=== PATIENT | female | born 1940 | race Caucasian/White ===

== ENCOUNTER 2018-02-18 10:17 | Inpatient (IN) | payer BC, OTHER ==
[2018-02-18] MEDS ORDERED: HYDROmorphone INJ* 2 MG/ML CARPUJECT SYRINGE IV SLOW PU ONE (10:39)
[2018-02-18] MEDS ORDERED: Ondansetron INJ* 2 MG/ML VIAL IV ONE (10:39)
[2018-02-18] MEDS ORDERED: Ketorolac INJ* 30 MG/ML 1 ML VIAL IV PUSH ONE (11:37)
[2018-02-18] MEDS ORDERED: NS 0.9% 1000 ML* 1,000 ML IV ONE (11:37)
--- NOTE | 2018-02-18 11:52 | RAD ---
INDICATION: Fall. Right shoulder injury COMPARISON: None TECHNIQUE: AP and lateral views were obtained. FINDINGS: There is a displaced and mildly comminuted fracture of the surgical neck and head of the humerus. The humeral shaft is displaced approximately two third bone widths laterally. There is mild overriding. The humeral head remains in the fossa. IMPRESSION: PROXIMAL HUMERAL FRACTURE DESCRIBED.
--- NOTE | 2018-02-18 11:53 | RAD ---
Indication: RIGHT knee pain post fall. Comparison: November 23, 2015 Technique: AP and crosstable lateral views RIGHT knee REPORT AND IMPRESSION: RIGHT knee prosthesis in place with normal alignment. No fracture or stigmata of prosthesis loosening. Small joint effusion. Mild anterior soft tissue swelling.
--- NOTE | 2018-02-18 11:55 | RAD ---
INDICATION: Traumatic proximal right humeral fracture COMPARISON: Right humerus same date TECHNIQUE: AP and lateral views were obtained. FINDINGS: There is a fracture of the surgical neck of the humerus with involvement of the humeral head with mild comminution. There is overriding. No other fractures are evident. 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 IMPRESSION: FRACTURE OF THE HUMERAL HEAD AND NECK DESCRIBED.
[2018-02-18 12:11] LABS: ABS Basophils 0 10^3/ul (0-0.2); ABS Eosinophils 0.1 10^3/ul (0-0.6); ABS Lymphocytes 0.6 10^3/ul (1.0-4.8); ABS Neutrophils 13.1 10^3/ul (1.5-7.7); ABS Nucleated RBC 0 10^3/ul; Eosinophil % 0.6 % (0-6); Hematocrit 30 % (35-47); Lymphocyte % 4.1 % (25-47); Mean Corpuscular HGB Conc 34 g/dl (31-36); Mean Corpuscular Hemoglobin 29 pg (27-31); Mean Corpuscular Volume 86 fL (80-97); Mean Platelet Volume 7.2 um3 (7.4-10.4); Nucleated Red Blood Cells % 0; Platelet Count 366 10^3/ul (150-450); Red Blood Count 3.48 10^6/ul (4.0-5.4); Red Cell Distribution Width 15 % (10.5-15); White Blood Count 14.8 10^3/ul (3.5-10.8)
[2018-02-18] MEDS ORDERED: oxyCODONE TAB* 5 MG TAB PO PRN (12:12)
[2018-02-18 12:25] LABS: INR 1.02 (0.77-1.02)
[2018-02-18 12:38] LABS: EGFR Non-African American 58.3 (>60)
[2018-02-18] MEDS: HYDROmorphone INJ* 2 MG/ML CARPUJECT SYRINGE IV SLOW PU PRN ×2 (12:54→17:14)
--- NOTE | 2018-02-18 13:21 | RAD ---
Indication: RIGHT shoulder pain post fall onto shoulder this morning. Comparison: Radiographs of the same date. Technique: Noncontrast CT RIGHT shoulder. Multiplanar reformation. Report: Comminuted fracture extending from the surgical to the anatomic neck of the humerus with approximate 1 bone width anterior displacement of the proximal metaphysis relative to the head as well as severe apex anterior and lateral angulation and impaction. The fracture extends to involve the greater and lesser tuberosities. Associated hemarthrosis. The humeral head remains located at the glenoid. Tiny ossific fragment at the posterior margin of the glenoid is likely dystrophic calcification related to labral degeneration. No fracture of the scapula or clavicle evident. Normal acromioclavicular joint alignment. Negative for RIGHT pneumothorax. IMPRESSION: Comminuted impacted angulated fracture of the surgical through anatomic neck of the RIGHT humerus with involvement of the lesser and greater tuberosities as described.
--- NOTE | 2018-02-18 13:30 | ED ---
Ramses Berger Jennifer, scribed for Prakash Cheema MD on 02/18/18 at 1029 . Upper Extremity Pain - HPI Summary HPI Summary: The patient is a 77 year old female who presents with right shoulder pain after falling this morning. The patient reports that she was a step-down from her bed because its so high. She stepped off and kept going and fell onto the carpeted bathroom floor. She fell directly onto her right shoulder and is now unable to move it. The patient additionally complains of her knee bleeding and dry mouth. She denies head injury, LOC, dizziness, weakness, difficulty breathing, abdominal pain. - History of Current Complaint Stated Complaint: RT SHOULDER PAIN Time Seen by Provider: 02/18/18 10:19 Hx Obtained From: Patient Hx Last Menstrual Period: menopause Mechanism Of Injury: Fall From Height Of: - Bed Onset/Duration: Still Present Timing: Constant Severity Initially: Severe Severity Currently: Severe Pain Location: Shoulder - Right Aggravating Factor(s): Movement Alleviating Factor(s): Nothing Associated Signs & Symptoms: Positive: Other - right shoulder pain, bleeding knee, dry mouth. NEGATIVE: head injury, LOC, dizziness, weakness, difficulty breathing, abdominal pain - Allergies/Home Medications Allergies/Adverse Reactions: Allergies Allergy/AdvReac Type Severity Reaction Status Date / Time Horse/Equine Containing Allergy Swelling Verified 02/18/18 12:00 Products Home Medications: Home Medications Acetaminophen [Acetaminophen Extra Strength] 500 mg PO TID PRN 02/18/18 [ History Confirmed 02/18/18] DULoxetine DR CAP* [Cymbalta CAP*] 60 mg PO DAILY 02/18/18 [History Confirmed ] Diltiazem CD CAP* [Cardizem CD CAP*] 120 mg PO DAILY 02/18/18 [History Confirmed 02/18/18] Famotidine TAB* [Pepcid 20 MG TAB*] 20 mg PO DAILY 02/18/18 [History Confirmed 02/18/18] Metoprolol Tartrate TAB* [Lopressor TAB*] 100 mg PO DAILY 02/18/18 [History Confirmed 02/18/18] Rivaroxaban TAB(*) [Xarelto 10 mg (*)] 10 mg PO DAILY 02/18/18 [History Confirmed 02/18/18] Rosuvastatin (NF) [Crestor (NF)] 5 mg PO DAILY 02/18/18 [History Confirmed 02/18] Senna TAB* [Senokot TAB*] 1 tab PO DAILY 02/18/18 [History Confirmed 02/18/18] Zolpidem CR (NF) [Ambien CR (NF)] 12.5 mg PO BEDTIME 02/18/18 [History Confirmed 02/18/18] amLODIPine TAB* [Norvasc 5 mg TAB*] 5 mg PO DAILY 02/18/18 [History Confirmed ] oxyCODONE TAB* [Roxycodone TAB 5 mg*] 5 mg PO Q3H PRN 02/18/18 [History Confirmed 02/18/18] PMH/Surg Hx/FS Hx/Imm Hx Endocrine/Hematology History: Reports: Hx Anemia Denies: Hx Diabetes Cardiovascular History: Reports: Hx Hypercholesterolemia, Hx Hypertension - on meds for, 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, Other Cardiovascular Problems/Disorders GI History: Reports: Hx Gastroesophageal Reflux Disease - on meds for, Other GI Disorders - pt states undiagnosed "colitis" History: Reports: Other Problems/Disorders - Overactive bladder Musculoskeletal History: Reports: Hx Arthritis - bilateral hands and knees Comment Only: Hx Rheumatoid Arthritis - OA Sensory History: Reports: Hx Contacts or Glasses - reading only Opthamlomology History: Reports: Hx Contacts or Glasses - reading only Psychiatric History: Reports: Hx Anxiety - on meds for - Cancer History Cancer Type, 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 Hurley office- 2014. hysterectomy- 1977. Hx Anesthesia Reactions: No - Family History Known Family History: Positive: Cardiac Disease, Hypertension - Social History Alcohol Use: Occasionally Substance Use Type: Reports: None Smoking Status (MU): Never Smoked Tobacco Review of Systems Negative: Shortness Of Breath Negative: Abdominal Pain Positive: Other - right shoulder pain Positive: Other - bloody right knee Neurological: Negative - head injury, LOC, dizziness, weakness All Other Systems Reviewed And Are Negative: Yes Physical Exam - Summary Physical Exam Summary: Appearance: Well appearing, no pain distress Skin: warm, dry, reflects adequate perfusion, suture wound is intact in right knee Head/face: normal Eyes: pupils 2mm nonreactive ENT: dry mucous membranes Neck: supple, non-tender Respiratory: CTA, breath sounds present Cardiovascular: RRR, aortic stenosis murmur, pulses symmetrical Abdomen: non-tender, soft Bowel Sounds: present Musculoskeletal: no pain on flexion or log roll normal, suture wound is intact in right knee, mid surgical scar has a little bit of oozing of blood, strength/ ROM intact Neuro: normal, sensory motor intact, A&Ox3 Triage Information Reviewed: Yes Vital Signs On Initial Exam: Initial Vitals Pulse BP Pulse Ox 67 179/62 94 02/18/18 10:23 02/18/18 10:23 02/18/18 10:23 Vital Signs Reviewed: Yes Procedures - Procedure Summary Procedure Summary: Tiny dehiscence of R knee surgical wound cleaned with chloroprep and 3 steri- strips placed. Diagnostics - Vital Signs Vital Signs Temp Pulse Resp BP Pulse Ox 02/18/18 11:52 71 92 02/18/18 11:51 70 152/60 89 02/18/18 10:51 16 02/18/18 10:42 69 163/69 92 02/18/18 10:31 98.0 F 68 16 179/62 94 02/18/18 10:24 67 93 02/18/18 10:23 67 179/62 94 - Laboratory Lab Results: Lab Results 02/18/18 Range/Units 11:54 Sodium 130 L (139-145) mmol/L Potassium 4.4 (3.5-5.0) mmol/L Chloride 99 L (101-111) mmol/L Carbon Dioxide 27 (22-32) mmol/L Anion Gap 4 (2-11) mmol/L BUN 19 (6-24) mg/dL Creatinine 0.93 (0.51-0.95) mg/dL Est GFR ( Amer) 75.0 (>60) Est GFR (Non-Af Amer) 58.3 (>60) BUN/Creatinine Ratio 20.4 H (8-20) Glucose 120 H (70-100) mg/dL Calcium 8.6 (8.6-10.3) mg/dL Total Bilirubin 0.60 (0.2-1.0) mg/dL AST 16 (13-39) U/L ALT 10 (7-52) U/L Alkaline Phosphatase 67 (34-104) U/L Total Protein 5.9 L (6.4-8.9) g/dL Albumin 3.4 (3.2-5.2) g/dL Globulin 2.5 (2-4) g/dL Albumin/Globulin Ratio 1.4 (1-3) Result Diagrams: 02/18/18 12:02 02/18/18 11:54 Lab Statement: Any lab studies that have been ordered have been reviewed, and results considered in the medical decision making process. - Radiology Knee XR Xray Interpretation: No Acute Changes - RIGHT knee prosthesis in place with normal alignment. No fracture or stigmata of prosthesis loosening. Small joint effusion. Mild anterior soft tissue swelling. Dr. Cheema has reviewed this report. Radiology Interpretation Completed By: Radiologist Humerus XR Xray Interpretation: Positive (See Comments) - PROXIMAL HUMERAL FRACTURE DESCRIBED. Dr. Cheema has reviewed this report. Radiology Interpretation Completed By: Radiologist Shoulder XR Xray Interpretation: Positive (See Comments) - FRACTURE OF THE HUMERAL HEAD AND NECK DESCRIBED. Dr. Cheema has reviewed this report. Radiology Interpretation Completed By: Radiologist Re-Evaluation - Re-Evaluation First Eval Re-Evaluation Time: 11:37 Change: Improved Comment: I put the patient in a sling. Course/Dx - Course Course Of Treatment: Pt with fall without head injury or impact with pain/ deformity R prox shoulder. Xray c/w prox humerus fx. Ortho evaluated in the ER. Hospitalist eval and will admit for pain control. Pt otherwise stable. Placed in sling. Operative plan per orthopedics. - Diagnoses Differential Diagnosis/HQI/PQRI: Positive: Fracture (Closed), Hematoma Provider Diagnoses: Proximal humerus fracture - Physician Notifications Discussed Care of Patient With: Luann Manzano Time Discussed With Above Provider: 11:38 Instructed by Provider To: Other - I discussed the patient with Dr. Manzano, orthopedic surgeon, and Dr. So, hospitalist. Discharge - Sign-Out/Discharge Documenting (check all that apply): Discharge/Admit/Transfer - Discharge Plan Condition: Good Disposition: ADMITTED TO [facility] - Billing Disposition and Condition Condition: GOOD Disposition: [facility] [place] The documentation as recorded by the Ramses bernstein Jennifer accurately reflects the service I personally performed and the decisions made by Anette zendejas Kirk, MD.
[2018-02-18] MEDS ORDERED: Morphine VIAL* 4 MG/ML VIAL (1 ml vial) IV PRN (13:41)
[2018-02-18] MEDS: oxyCODONE TAB* 5 MG TAB PO PRN ×2 (14:05→18:51)
[2018-02-18] MEDS: Heparin VIAL(*) 5000 UNITS/ML VIAL (FIVE THOUSAND) SUBCUT SCH ×2 (14:06→20:42)
--- NOTE | 2018-02-18 17:32 | ECHO ---
Patient: [facility] Rec#: [id number] : 1940 Date: 02/18/2018 Age: 77y Height: 149.86 cm / 59.0 in Weight: 49.9 kg / 110.0 lbs Sex: F BSA: 1.43 Room#: 332 Admit Date#: 02/18/2018 Type: Inpatient Referring: Valeria Bob NP Reading: Sergey Bravo DO Sole Cementer: Nancy MonteroRDCS,RDMS Transthoracic Echocardiogram Indication: HOCM BP: 125/55 HR: 70 Rhythm: NSR Findings History: HOCM, HTN, HLD Left Ventricle: The left ventricular chamber size is normal. Moderate concentric left ventricular hypertrophy is observed. Basal septal hypertrophy and systolic anterior motion of the mitral valve are observed creating an outflow tract gradient. Patient has an end systolic dynamic LVOT gradient of 7 m/s which is a peak gradient of 196 mmHg (very severely elevated) Global left ventricular wall motion and contractility are within normal limits. There is normal left ventricular systolic function. The estimated ejection fraction is greater than 65%. Abnormal left ventricular diastolic function is observed. Left Atrium: The left atrium is severely dilated. Right Ventricle: The right ventricular chamber size and systolic function are within normal limits. The right ventricle wall thickness is mildly increased. Right Atrium: The right atrial cavity size is normal. Aortic Valve: The aortic valve is trileaflet. The aortic valve leaflets are mildly thickened. There is aortic annular calcification. There is moderate aortic regurgitation. Mitral Valve: Severe mitral annular calcification present., posterior predominant The mitral valve leaflets are mildly thickened. Mitral valve leaflet mobility is mildly restricted. There is mild to moderate mitral regurgitation. There is moderate mitral stenosis. wiht a mean gradient of 9.2 mmHg while in sinus rhythm at 70 bpm. Some of elevated gradient likely related to mitral regurgitation Tricuspid Valve: The tricuspid valve leaflets are normal. There is mild tricuspid regurgitation. There is evidence of moderate pulmonary hypertension. Pulmonic Valve: The pulmonic valve appears normal. There is mild pulmonic regurgitation. There is no pulmonic stenosis. Pericardium: There is no significant pericardial effusion. Aorta: There is mild dilatation of the ascending aorta. There is no dilatation of the aortic arch. The aortic root is normal in size. Pulmonary Artery: The main pulmonary artery appears normal. Venous: The inferior vena cava is not visualized. Conclusions The left ventricular chamber size is normal. Moderate concentric left ventricular hypertrophy is observed. Basal septal hypertrophy and systolic anterior motion of the mitral valve are observed creating an outflow tract gradient. [Patient has an end systolic dynamic LVOT gradient of 7 m/s which is a peak gradient of 196 mmHg (very severely elevated at rest (without valsalva)] There is normal left ventricular systolic function. The estimated ejection fraction is 65-70% The left atrium is severely dilated. The right ventricular chamber size and systolic function are within normal limits. There is moderate aortic regurgitation. There is mild to moderate mitral regurgitation. There is moderate non-rheumatic mitral stenosis. There is evidence of moderate pulmonary hypertension. Compared to prior study from 07/2017, no clinically significant changes noted. Measurements Name Value Normal Range RVIDd (AP) 2D 2.6 cm (0.9 - 2.6) RVDdMajor (2D) 2.4 cm (2.2 - 4.4) RAd ISD 4CH 4.9 cm (3.4 - 4.9) RA (A4C)W 3.4 cm (2.9 - 4.6) IVSd (2D) 2 cm (0.6 - 1) LVPWd (2D) 2 cm (0.6 - 1) LVIDd (2D) 3.9 cm (3.6 - 5.4) LVIDs (2D) 2.6 cm - LV FS (2D) 34 % (25 - 45) Aortic Annulus 2 cm (1.4 - 2.6) Ao root diameter (2D) 2.5 cm (2.1 - 3.5) Ascending Ao 3.9 cm (2.1 - 3.4) Aortic arch 3.3 cm (1.8 - 3.4) LA dimension (AP) 2D 4.7 cm (2.3 - 3.8) LAd ISD 4CH 6.8 cm (2.9 - 5.3) LA ISD 4CH W 5.5 cm (2.5 - 4.5) Name Value Normal Range LA ESV SP 4CH (A/L) 134.73 ml - LA ESV SP 2CH (A/L) 102.34 ml - LA ESV BP (A/L) 127.22 ml - LA ESV BP (A/L) index 89 ml/m2 - LA ESV SP 4CH (MOD) 125.49 ml - LA ESV SP 2CH (MOD) 98.82 ml - Name Value Normal Range MV E-wave Vmax 1.4 m/sec - MV deceleration time 191 msec - MV A-wave Vmax 1.8 m/sec - MV E:A ratio 0.8 ratio - LV septal e' Vmax 0.04 m/sec - LV lateral e' Vmax 0.05 m/sec - LV E:e' septal ratio 35 ratio - LV E:e' lateral ratio 28 ratio - Name Value Normal Range AV Vmax 1.9 m/sec - AV VTI 24 cm - AV peak gradient 14 mmHg - AV mean gradient 4.9 mmHg - LVOT diameter 2 cm - AR PHT 442.72 msec - AR peak gradient 52.15 mmHg - ANDRES Vmax 0.7 m/sec - Name Value Normal Range MV Vmax 2.1 m/sec - MV VTI 59 cm - MV peak gradient 18 mmHg - MV mean gradient 9.2 mmHg - MV PHT 74 msec - MVA (PHT) 3 cm2 - Name Value Normal Range TR Vmax 3.3 m/sec - TR peak gradient 44 mmHg - RAP 8 mmHg - RVSP 52 mmHg - Name Value Normal Range PV Vmax 1.1 m/sec - PV peak gradient 5 mmHg -
--- NOTE | 2018-02-18 18:28 | CONSULT ---
Subjective Date of Service: 02/18/18 Interval History: Admission Date: 02/18/18 Consult date 02/18/2018 Provider: Hospitalist service PMD: Dr. Johnson Firepot Operator And Tender: Dr. Lozano CHIEF COMPLAINT: Mechanical fall and right arm fracture. Reason for consult: Pre-operative cardiac risk stratification HISTORY OF PRESENT ILLNESS: Mariam Blount is a 77-year-old woman with a past medical history of HOCM with very severe resting LVOT gradient along with mixed valve disease as below, paroxysmal Afib on amiodarone, hypertension, hyperlipidemia. She is with her and aide. She had an uncomplicated knee replacement in [place] 2 weeks ago. She tells me she left A because sodium was low, 02 levels were, concern over pulmonary hypertension and they wanted to keep her one more night inpatient and she declined. She was recovering relatively well until she had a mechanical fall at home and right proximal humeral fracture. She denies any lightheadedness, dizziness, palpitations, chest discomfort dyspnea, significant recent edema or syncope. Her and understand that she has a very serious heart condition. She does not want to leave this hospital and wants to have surgery here. I discussed with Dr. Manzano. The surgery being planned requires general anesthesia. The chance of significant blood loss is low. PAST MEDICAL HISTORY: 1. HOCM. 2. Hypertension. 3. Hyperlipidemia. 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 Almeida as outpatient. 5. LBBB Pshx: knee replacement ALLERGIES: horse products. FAMILY HISTORY: The patient's mother had a brain tumor. Her father had a history of CVA. SOCIAL HISTORY: No report of smoking. She drinks wine occasionally. She is . Her surrogate decision maker is her . Medications Active Medications: Acetaminophen (Tylenol Tab*) 650 mg PO Q4H PRN PRN Reason: FEVER/PAIN Amiodarone HCl (Cordarone Tab*) 100 mg PO DAILY [facility] Diltiazem HCl (Cardizem Cd Cap*) 120 mg PO DAILY [facility] Docusate Sodium (Colace Cap*) 200 mg PO DAILY [facility] Duloxetine HCl (Cymbalta Cap*) 60 mg PO DAILY [facility] Estradiol (Climara Patch 0.05 Mg/Day*) patch TRANSDERM .TWICE WEEKLY [facility] Famotidine (Pepcid Tab*) 20 mg PO DAILY [facility] Heparin Sodium (Porcine) (Heparin Vial(*)) 5,000 units SUBCUT Q8HR [facility] Last Admin: 02/18/18 14:06 Dose: 5,000 units Hydromorphone HCl (Dilaudid Inj*) 1 mg IV SLOW PU Q2H PRN PRN Reason: PAIN Last Admin: 02/18/18 17:14 Dose: 1 mg Sodium Chloride (Ns 0.9% 1000 Ml*) 1,000 mls @ 75 mls/hr IV PER RATE [facility] Metoprolol Succinate (Toprol Xl Tab*) 100 mg PO DAILY [facility] Morphine Sulfate (Morphine Vial*) 4 mg IV Q2H PRN PRN Reason: PAIN Oxycodone HCl (Roxycodone Tab*) 5 mg PO Q3H PRN PRN Reason: PAIN Oxycodone HCl (Roxycodone Tab*) 10 mg PO Q4H PRN PRN Reason: PAIN Last Admin: 02/18/18 14:05 Dose: 10 mg Senna (Senokot Tab*) 1 tab PO DAILY [facility] Valsartan (Diovan Tab*) 160 mg PO 0900 [facility] Zolpidem Tartrate (Ambien Tab*) 10 mg PO BEDTIME [facility] PRN Reason: Protocol Home Medications: Valsartan TAB* [Diovan TAB*] 160 mg PO DAILY 04/25/13 [History Confirmed ] Docusate CAP* [Colace Cap*] 200 mg PO DAILY 06/02/16 [History Confirmed 02/18/18 ] Estradiol PATCH 0.05MG/DAY* [Climara PATCH 0.05 MG/DAY*] 0.05 mg TOPICAL .TWICE WEEKLY 06/02/16 [History Confirmed 02/18/18] Amiodarone TAB* [Cordarone Tab*] 100 mg PO DAILY 08/25/16 [History Confirmed 01/03] Acetaminophen [Acetaminophen Extra Strength] 500 mg PO TID PRN 02/18/18 [ History Confirmed 02/18/18] DULoxetine DR CAP* [Cymbalta CAP*] 60 mg PO DAILY 02/18/18 [History Confirmed ] Diltiazem CD CAP* [Cardizem CD CAP*] 120 mg PO DAILY 02/18/18 [History Confirmed 02/18/18] Famotidine TAB* [Pepcid 20 MG TAB*] 20 mg PO DAILY 02/18/18 [History Confirmed 02/18/18] Metoprolol Tartrate TAB* [Lopressor TAB*] 100 mg PO DAILY 02/18/18 [History Confirmed 02/18/18] Rivaroxaban TAB(*) [Xarelto 10 mg (*)] 10 mg PO DAILY 02/18/18 [History Confirmed 02/18/18]. for DVT prophylaxis has not been taking. Rosuvastatin (NF) [Crestor (NF)] 5 mg PO DAILY 02/18/18 [History Confirmed 02/18] Senna TAB* [Senokot TAB*] 1 tab PO DAILY 02/18/18 [History Confirmed 02/18/18] Zolpidem CR (NF) [Ambien CR (NF)] 12.5 mg PO BEDTIME 02/18/18 [History Confirmed 02/18/18] amLODIPine TAB* [Norvasc 5 mg TAB*] 5 mg PO DAILY 02/18/18 [History Confirmed ] oxyCODONE TAB* [Roxycodone TAB 5 mg*] 5 mg PO Q3H PRN 02/18/18 [History Confirmed 02/18/18] Review of Systems - Measurements Intake and Output: Intake and Output Last 24 Hours 02/16/18 02/17/18 02/18/18 02/19/18 06:59 06:59 06:59 06:59 Intake Total 1000 Balance 1000 Weight 140 lb Intake: IV Fluids 1000 - Review of Systems Constitutional Symptoms: Negative: Weight Gain, Weight Loss, Weakness, Fatigue Dermatology: Negative: Rash, Skin Lesions HEENT: Negative: Change in Hearing, Vertigo Eyes: Negative: Change in Vision, Double Vision Thyroid: Negative: Cold Intolerance, Heat Intolerance, Weight Loss, Weight Gain Pulmonary: Negative: Cough, Sputum, Hemoptysis, Wheezing, Respiratory Distress, Shortness of Breath Cardiology: Negative: Chest Pain, Shortness of Breath, Palpitations, Swelling of Ankles, Peripheral Vascular Dis, Edema, Syncope, Paroxysmal Nocturnal Dyspnea, Orthopnea Gastroenterology: Negative: Abdominal Pain, Nausea, Vomiting, Anorexia, Indigestion, Difficulty Swallowing Genital - Urinary: Negative: Dysuria, Hematuria Musculoskeletal: Positive: Joint Pain Negative: Joint Stiffness, Arthritis Endocrinology: Negative: Polydipsia, Polyuria Hematologic/Lymphatic: Positive: Anemia Negative: Hx Leukemia Neurology: Negative: Headaches, Migraines, Change in Vision, Diplopia, Dizziness, Change in Balancing, Change in Coordination, Change in Memory Psychiatry: Negative: Depression, Anxiety, Unusual Anxiety, Suicidal Ideation Allergic/Immunologic: Negative: Hx HIV, Immunocompromise Review of Systems Statement: All other review of systems negative, unless stated above. Objective Vital Signs: Temp Pulse Resp BP Pulse Ox 97.3 F 72 18 141/46 95 02/18/18 13:45 02/18/18 13:45 02/18/18 17:14 02/18/18 13:45 02/18/18 13:45 Oxygen Devices in Use Now: None Appearance: nad, pleasant Ears/Nose/Mouth/Throat: Clear Oropharnyx Neck: NL Appearance and Movements; NL JVP, Trachea Midline Respiratory: Symmetrical Chest Expansion and Respiratory Effort, Clear to Auscultation Cardiovascular: RRR, - - harsh 2-3/6 systolic murmur lusb Abdominal: NL Sounds; No Tenderness; No Distention Extremities: No Clubbing, Cyanosis Skin: No Rash or Ulcers Neurological: Alert and Oriented x 3 Laboratory Results: 02/18/18 12:02 02/18/18 11:54 INR (Anticoag Therapy) 1.02 (0.77-1.02) 02/18/18 12:02 APTT 28.8 seconds (26.0-36.3) 02/18/18 12:02 Total Bilirubin 0.60 mg/dL (0.2-1.0) 02/18/18 11:54 AST 16 U/L (13-39) 02/18/18 11:54 ALT 10 U/L (7-52) 02/18/18 11:54 Alkaline Phosphatase 67 U/L (34-104) 02/18/18 11:54 Total Protein 5.9 g/dL (6.4-8.9) L 02/18/18 11:54 Albumin 3.4 g/dL (3.2-5.2) 02/18/18 11:54 Globulin 2.5 g/dL (2-4) 02/18/18 11:54 Albumin/Globulin Ratio 1.4 (1-3) 02/18/18 11:54 Diagnostic Imaging: Echo 02/18/2018 The left ventricular chamber size is normal. Moderate concentric left ventricular hypertrophy is observed. Basal septal hypertrophy and systolic anterior motion of the mitral valve are observed creating an outflow tract gradient. [Patient has an end systolic dynamic LVOT gradient of 7 m/s which is a peak gradient of 196 mmHg (very severely elevated at rest (without valsalva)] There is normal left ventricular systolic function. The estimated ejection fraction is 65-70% The left atrium is severely dilated. The right ventricular chamber size and systolic function are within normal limits. There is moderate aortic regurgitation. There is mild to moderate mitral regurgitation. There is moderate non-rheumatic mitral stenosis. There is evidence of moderate pulmonary hypertension. Compared to prior study from 07/2017, no clinically significant changes noted. cxr 02/18/2018: no acute findings EKG Data: 02/18/2018: NSR, LBBB Assessment/Plan Mrs. Blount is at high risk for cardiovascular complications for anesthesia and surgery. She understands this very well and this was discussed with her and . She does not want to be transferred to another hospital. She needs surgery for a broken arm. I do not appreciate any treatment in the short term that could lower this risk. My recommendations would be: - Keep pre-load elevated with IV fluids as needed and this should be first treatment for low blood pressure - Patient needs metoprolol (I changed to succinate 100 mg daily) and diltiazem tomorrow and this should be uninterrupted. - Hold afterload reducers valsartan and amlodipine (ordered) - Severe hypotension should be treated with phenylephrine/neosynephrine. PLEASE AVOID INOTROPES. We could also consider an echo guided esmolol infusion to monitor and reduce the outflow tract gradient if absolutely necessary. - Patient would be at high risk for hemodynamic collapse and flash pulmonary edema with the development of atrial fibrillation. If she were to develop atrial fibrillation she would need very close monitoring for development of complications with consideration of early external electrical cardioversion if any were to arise. - Would have a low threshold for ICU monitoring post-operatively Discussed with Dr. Manzano (Ortho), Dr. Mckeon (Anesthesia) and Dr. So Thank you for allowing me to participate in the cardiovascular care of this patient. Please do not hesitate to contact me with questions or concerns.
[2018-02-18 18:58] LABS: Urine Appearance Clear; Urine Blood 1+ (Negative); Urine Color Yellow; Urine Ketones Negative (Negative); Urine Protein Negative (Negative); Urine Specific Gravity 1.005 (1.010-1.030); Urine Urobilinogen Negative (Negative)
--- NOTE | 2018-02-18 19:53 | PN ---
Progress Note - Progress Note Date of Service: 02/18/18 Note: Pt seen an examined at 5pm. Family at bedside. Pt sustained mechanical fall which resulted in a right proximal humerus fracture. Appears to be surgical neck with involvement of lesser tuberosity. Pt in sling lying comfortably in bed. Denies numbness and tingling. Pain controlled. Temp Pulse Resp BP Pulse Ox 97.3 F 72 16 141/46 95 02/18/18 13:45 02/18/18 13:45 02/18/18 19:02 02/18/18 13:45 02/18/18 13:45 AAOx3, pleasant mood, normal affect. Calm and cooperative with exam. RUE: Skin intact. No bruising. Able to flex/ext digits and wrist. Sensate to light touch about 1st DWS, index and ling finger, and ulnar aspect of small finger. Brisk cap refill. Nontender about wrist and elbow. Laboratory Results - last 24 hr 02/18/18 02/18/18 02/18/18 11:54 12:02 12:02 WBC 14.8 H RBC 3.48 L Hgb 10.0 L Hct 30 L MCV 86 MCH 29 MCHC 34 RDW 15 Plt Count 366 MPV 7.2 L Neut % (Auto) 88.4 H Lymph % (Auto) 4.1 L Grimes % (Auto) 6.7 Eos % (Auto) 0.6 Baso % (Auto) 0.2 Absolute Neuts (auto) 13.1 H Absolute Lymphs (auto) 0.6 L Absolute Monos (auto) 1.0 H Absolute Eos (auto) 0.1 Absolute Basos (auto) 0 Absolute Nucleated RBC 0 Nucleated RBC % 0 INR (Anticoag Therapy) 1.02 APTT 28.8 Sodium 130 L Potassium 4.4 Chloride 99 L Carbon Dioxide 27 Anion Gap 4 BUN 19 Creatinine 0.93 Est GFR ( Amer) 75.0 Est GFR (Non-Af Amer) 58.3 BUN/Creatinine Ratio 20.4 H Glucose 120 H Calcium 8.6 Total Bilirubin 0.60 AST 16 ALT 10 Alkaline Phosphatase 67 Total Protein 5.9 L Albumin 3.4 Globulin 2.5 Albumin/Globulin Ratio 1.4 Urine Color Urine Appearance Urine pH Ur Specific [place] Urine Protein Urine Ketones Urine Blood Urine Nitrate Urine Bilirubin Urine Urobilinogen Ur Leukocyte Esterase Urine WBC (Auto) Urine RBC (Auto) Ur Squamous Epith Cells Urine Bacteria Urine Glucose 02/18/18 18:45 WBC RBC Hgb Hct MCV MCH MCHC RDW Plt Count MPV Neut % (Auto) Lymph % (Auto) Grimes % (Auto) Eos % (Auto) Baso % (Auto) Absolute Neuts (auto) Absolute Lymphs (auto) Absolute Monos (auto) Absolute Eos (auto) Absolute Basos (auto) Absolute Nucleated RBC Nucleated RBC % INR (Anticoag Therapy) APTT Sodium Potassium Chloride Carbon Dioxide Anion Gap BUN Creatinine Est GFR ( Amer) Est GFR (Non-Af Amer) BUN/Creatinine Ratio Glucose Calcium Total Bilirubin AST ALT Alkaline Phosphatase Total Protein Albumin Globulin Albumin/Globulin Ratio Urine Color Yellow Urine Appearance Clear Urine pH 6.0 Ur Specific [place] 1.005 L Urine Protein Negative Urine Ketones Negative Urine Blood 1+ A Urine Nitrate Negative Urine Bilirubin Negative Urine Urobilinogen Negative Ur Leukocyte Esterase Negative Urine WBC (Auto) Trace(0-5/hpf) Urine RBC (Auto) Trace(0-2/hpf) Ur Squamous Epith Cells Present A Urine Bacteria 1+ A Urine Glucose Negative Xrays and CT reviewed that demonstrate displaced surgical neck fracture with intact humeral head. Small extension into lesser tuberosity. A/P 77 yo RHD F with displaced proximal humerus fracture Discussed possible risks and benefits to ORIF versus reverse. Recommend ORIF as her best option and possible need for allograft. Reviewed risks of AVN. nonunion , persistent pain, lack of motion, stiffness, risks of anesthesia. Risks also include but are not limited to: bleeding, infection, damage to nerves, vessels and surrounding structures, wound healing problems, persistent pain. Pt was prescribed pradaxa after her recent TKA but has not taken it in 3 days. Also, reviewed that reverse is still an option later down the road if she fails ORIF. Both family and patient reviewed the information. Questions were invited and answered. Will plan for ORIF of right proximal humerus on 02/19/18. Appreciate medical optimization.
--- NOTE | 2018-02-18 20:39 | RAD ---
HISTORY: Preop for shoulder fracture, elevated white blood cell count COMPARISONS: June 04, 2016 VIEWS: 1: frontal portable view of the chest at 7:30 PM FINDINGS: LINES AND TUBES: None. CARDIOMEDIASTINAL SILHOUETTE: The cardiomediastinal silhouette is stable. PLEURA: The costophrenic angles are sharp. No pleural abnormalities are noted. LUNG PARENCHYMA: The lungs are clear. ABDOMEN: The upper abdomen is clear. There is no subphrenic gas. BONES AND SOFT TISSUES: No bone or soft tissue abnormalities are noted. IMPRESSION: NO ACTIVE CARDIOPULMONARY DISEASE.
[2018-02-18] MEDS: Zolpidem TAB* 10 MG PO SCH (20:42)
--- NOTE | 2018-02-18 20:57 | CONS ---
CONSULTATION REPORT: DATE OF CONSULT: 02/18/18 Thank you for this orthopedic consultation. CHIEF COMPLAINT: Right shoulder pain. HISTORY OF PRESENT ILLNESS: Mrs. Blount is a 77-year-old female who fell in her home today on 02/18/18. She immediately had 10/10 pain in the right shoulder and inability to move her shoulder. She was brought to [facility] by ambulance and noted to have a proximal humerus fracture. The patient is well known to me as she had right total knee arthroplasty 2 weeks ago at the [facility]. I did surgically assist for the total knee replacement. . The patient has multiple medical comorbidities including significant heart history. She has obstructive cardiomyopathy which prompted us to take her elective surgery to the [facility]. The patient denies any recent fevers, chills, chest pain, shortness of breath. During her recent hospitalization at the [facility], she did have hyponatremia as well as low oxygen saturation. Chest x-ray showed no pneumonia, some slight atelectasis. She had no hypotension or irregular heart rhythm postoperatively. PAST MEDICAL HISTORY: Osteoarthritis, hypertension, hypertrophic obstructive cardiomyopathy, aortic regurgitation, anxiety. PAST SURGICAL HISTORY: Hysterectomy, right total knee arthroplasty on 02/03/[address] Florian Grubbs in [facility]. OUTPATIENT MEDICATIONS: 1. Cardizem 120 mg p.o. daily. 2. Metoprolol ER 100 mg p.o. daily. 3. Diovan 160 mg p.o. daily. 4. Ambien CR 12.5 mg p.o. q.h.s. 5. Duloxetine 60 mg p.o. daily. 6. Oxycodone 5 mg p.o. q. 4 hours p.r.n. for pain. 7. Pradaxa, but the patient reports that she stopped taking it 4 days ago. ALLERGIES: LISINOPRIL, TETANUS allergy. FAMILY HISTORY: None. SOCIAL HISTORY: The patient is . Lives with her . She was a homemaker. No tobacco or recreational drug use. She does drink alcohol socially. Normally an independent ambulator but currently using a walker because she is status post total knee arthroplasty. REVIEW OF SYSTEMS: Positive for recent fall, right shoulder pain, right knee pain, negative for fevers, chills, chest pain, shortness of breath. Otherwise, patient reports review of systems is negative or not relevant. PHYSICAL EXAM: Vitals: Temperature 97.3, pulse is 72, blood pressure 141/46, oxygen saturation 95% on room air. General: The patient is a thin female. No apparent distress. Alert and oriented x3. Pleasant mood and appropriate affect. Her and her private nurse are at her bedside. Gait is not assessed. HEENT: Atraumatic, normocephalic, pupils equal and reactive to light. Chest: Unlabored breathing. Right Upper Extremity: The patient's skin is intact. She has swelling and tenderness to palpation along the proximal shoulder region. No tenderness along the elbow or wrist, wrist flexion and extension. 2+ palpable radial pulse. She can demonstrate thumbs up, OK, and crossed finger sign. Right Lower Extremity: The patient's incision is healing. The incision in intact. There is a small area with some Steri-Strips, reportedly this was mildly opened from her fall. She has a moderate effusion at the knee joint with hematoma. Some mild warmth, no erythema distally. Neurovascularly intact. DIAGNOSTIC STUDIES/LAB DATA: White blood cell 14.8, hematocrit 30, platelets 366. There is a left shift 88.4. INR 1.02. Chemistry: Sodium 130, potassium 4.4, chloride 99, BUN and creatinine 19 and 0.93, total protein 5.9, alk phos 67. Urinalysis is not back yet. Radiographs: Multiple views of the right knee shows cemented total knee arthroplasty in satisfactory position. No periprosthetic fracture or loosening. Multiple views of the right shoulder show a displaced comminuted proximal humerus fracture. CT scan is also reviewed which shows the same. ASSESSMENT AND PLAN: Mrs. Blount is a 77-year-old female status post fall with a right displaced proximal humerus fracture. This is a closed fracture. Unfortunately, the patient is now only 2 weeks status post right total knee arthroplasty. The patient, her family and I discussed operative and nonoperative treatment options. She completely understands that she is at high cardiac risk for any surgery. She would like to proceed with operative intervention. I have contacted our shoulder specialist Dr. Gutierrez who will see the patient. We will plan on, 2 p.m. 02/19/18, open reduction and internal fixation of the right proximal humerus. The risks and benefits of both nonoperative and operative treatment were discussed at length. They understand with the operative fixation, there is risk of surgery related to anesthesia, her obstructive cardiomyopathy, etc. Also related to surgery, the real risk of AVN and failure to heal this fracture. The patient wishes to proceed. She will be n.p.o. after 6 am tomorrow morning. I do not currently see a chest x-ray or urinalysis and this will be ordered. In regard to the knee, we will watch this. She will have the appropriate physical therapy and range of motion exercises. Dr. Lozano from Cardiology and Dr. So from hospitalist service are seeing the patient. Of course, we will not proceed without medical optimization. [id number]/[facility] #: [id number] MTDD
--- NOTE | 2018-02-18 21:39 | HP ---
CC: Dr. Johnson* [facility] MEDICINE HISTORY AND PHYSICAL: DATE OF ADMISSION: 02/18/18 PRIMARY CARE PHYSICIAN: Dr. Johnson. ATTENDING PHYSICIAN: Pepe So MD * (dictation provided by Valeria Bob NP). CHIEF COMPLAINT: Right shoulder pain. HISTORY OF PRESENT ILLNESS: Ms. Blount is a 77-year-old female with a past medical history of HOCM, hypertension, hyperlipidemia, who presented to the hospital today after a mechanical fall at home. Ms. Blount states that she has been in a normal state of health with no acute complaints. She denies any lightheadedness, dizziness. She states that today she was walking down the stairs when she tripped and fell on to her right shoulder. She had immediate severe pain to the shoulder and was ultimately brought to the emergency room for evaluation. She denies any loss of consciousness. She denies any chest pain or shortness of breath. She denies any dysuria or frequency. She has had no cough. She has had no fever. In the emergency room, Ms. Blount was confirmed to have a proximal humeral fracture as described. She had a shoulder x-ray that showed again the fracture of the humeral head and neck, and she also had complained of some right knee pain, which showed "right knee prosthesis in place with normal alignment. No fracture or stigmata of prosthesis or loosening." Her labs showed a very mild elevated white blood cell count of 14.8. Her hemoglobin is 10 and hematocrit is 30, which is consistent with previous. She has a very mildly low sodium at 130, which is actually better than her baseline. Her vitals are stable. PAST MEDICAL HISTORY: 1. HOCM. 2. Hypertension. 3. Hyperlipidemia. 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 Almeida as outpatient. 5. Anxiety. MEDICATIONS: Outpatient are: 1. Oxycodone 5 mg p.o. q.2 hours p.r.n. 2. Amlodipine 5 mg p.o. daily. 3. Zolpidem 12.5 mg p.o. at bedtime. 4. Valsartan 160 mg p.o. daily. 5. Senna 1 tab p.o. daily. 6. Rosuvastatin 5 mg p.o. daily. 7. Rivaroxaban 10 mg p.o. daily. 8. Metoprolol tartrate 100 mg p.o. daily. 9. Famotidine 20 mg p.o. daily. 10. Estradiol patch 0.05 mg a day twice weekly. 11. Docusate 200 mg p.o. daily. 12. Diltiazem CD 120 mg p.o. daily. 13. Duloxetine DR 60 mg p.o. daily. 14. Amiodarone 100 mg p.o. daily. 15. Tylenol 500 mg p.o. t.i.d. p.r.n. ALLERGIES: To HORSE URINE CONTAINING PRODUCTS. FAMILY HISTORY: The patient's mother had a brain tumor. Her father had a history of CVA. SOCIAL HISTORY: No report of smoking. She drinks wine occasionally. She is . Her surrogate decision maker is her . REVIEW OF SYSTEMS: A 14-point review of systems was completed and all those not mentioned above were negative. PHYSICAL EXAMINATION GENERAL: Ms. Blount is lying in the bed in the emergency room. She is in no acute distress. VITAL SIGNS: Temperature 97.3, pulse rate 72, respiratory rate 16, O2 saturation 95% on room air, blood pressure 141/46. LUNGS: Clear to auscultation bilaterally with no accessory muscle use and good aeration. HEART: S1, S2. Prominent systolic murmur. ABDOMEN: Soft, nontender. Bowel sounds positive x4. EXTREMITIES: No cyanosis or edema. Right arm is in a sling. NEURO: She is alert. She is oriented x3. She moves all extremities equally. There is no facial asymmetry or focal weakness. Extraocular movements are intact. SKIN: Intact. DIAGNOSTIC STUDIES/LAB DATA: Sodium 130, potassium 4.4, chloride 99, serum bicarbonate 27, BUN 19, creatinine 0.93, glucose 120. WBC 14.8, hemoglobin 10.0, hematocrit 30, platelet count 366,000. INR 1.02. The humerus x-ray, shoulder x-ray, and knee x-ray were read as per above. The also had an upper extremity CT, which showed "comminuted impacted angulated fracture of the surgical through anatomic neck of the right humerus with involvement of the lesser and greater tuberosities as described." ASSESSMENT: Ms. Blount is a 77-year-old female with a known history of hypertrophic cardiomyopathy as well as hypertension and hyperlipidemia, who presents to the emergency room today with concern for a mechanical fall resulting in a right humerus fracture. Our plans are for inpatient admission for the followin. Right humerus fracture: Ms. Blount does have a history of hypertrophic cardiomyopathy. She recently underwent an elective knee surgery at the [facility] because of this cardiac history. This surgery was uneventful and the patient suffered no complications during the surgery. The patient is adamant that she would like to remain at our hospital for any needed surgical intervention on the shoulder. Therefore, plan to consult with Dr. Manzano from Orthopedic Surgery. Cardiology will be consulted to provide cardiac evaluation and optimization as well as recommendations for the perioperative management. The patient is clearly high risk given her history of significant hypertrophic cardiomyopathy. At this point, she appears euvolemic. I think she could benefit from intravenous fluids to assist with preload and she will have maintenance fluids with normal saline at 75 mL per hour overnight. Otherwise, we will continue home medications and await recommendations from Cardiology. The patient will have pain medication p.r.n. with bowel regimen. 2. Leukocytosis. The patient has a very mild leukocytosis. I think this is secondary to her fall. She has no other acute complaint. We will check chest x -ray and urinalysis for completeness of evaluation. 3. Hypertension. Continue home medications pending any further recommendations from Cardiology. 3. History of atrial fibrillation. Continue amiodarone, metoprolol and diltiazem. The patient states that she held her rivaroxaban at home for several days of her own accord prior to the surgery. 4. History of depression. Continue duloxetine. 5. DVT prophylaxis. Heparin subcu. 6. Code status is full code. 7. Disposition to the surgical floor. TIME SPENT: Approximately 90 minutes were spent in the admission of this patient, more than half of the time was spent with the patient at the bedside reviewing the events leading up to this hospitalization, performing the physical examination, and reviewing the plan of care. VALERIA BOB NP [id number]/[facility] #: [id number] ALLAN
[2018-02-19] MEDS: oxyCODONE TAB* 5 MG TAB PO PRN ×2 (01:45→06:13)
[2018-02-19] MEDS: HYDROmorphone INJ* 2 MG/ML CARPUJECT SYRINGE IV SLOW PU PRN ×3 (03:51→23:33)
[2018-02-19] MEDS: NS 0.9% 1000 ML* 1,000 ML IV SCH ×2 (03:51→20:25)
[2018-02-19 05:40] LABS: ABS Basophils 0 10^3/ul (0-0.2); ABS Eosinophils 0.3 10^3/ul (0-0.6); ABS Lymphocytes 1.1 10^3/ul (1.0-4.8); ABS Monocytes 0.9 10^3/ul (0-0.8); ABS Neutrophils 6.4 10^3/ul (1.5-7.7); ABS Nucleated RBC 0 10^3/ul; Eosinophil % 2.9 % (0-6); Hematocrit 28 % (35-47); Hemoglobin 9.3 g/dl (12.0-16.0); Lymphocyte % 12.5 % (25-47); Mean Corpuscular HGB Conc 33 g/dl (31-36); Mean Corpuscular Hemoglobin 29 pg (27-31); Mean Corpuscular Volume 87 fL (80-97); Mean Platelet Volume 7.9 um3 (7.4-10.4); Nucleated Red Blood Cells % 0; Platelet Count 341 10^3/ul (150-450); Red Cell Distribution Width 15 % (10.5-15); White Blood Count 8.6 10^3/ul (3.5-10.8)
[2018-02-19 05:54] LABS: EGFR Non-African American 59.8 (>60)
[2018-02-19] MEDS: Heparin VIAL(*) 5000 UNITS/ML VIAL (FIVE THOUSAND) SUBCUT SCH ×3 (05:59→21:22)
[2018-02-19] MEDS ORDERED: amLODIPine TAB* 5 MG PO SCH (09:00)
[2018-02-19] MEDS ORDERED: Metoprolol Tartrate TAB* 100 MG TAB PO SCH (09:00)
--- NOTE | 2018-02-19 09:27 | RAD ---
INDICATION: Traumatic fracture of the right shoulder. COMPARISON: Comparison is made with a prior study from February 18, 2018. TECHNIQUE: 3 views of the right shoulder were obtained. FINDINGS: There is a comminuted fracture of the surgical neck and head of the humerus. The fracture fragments are impacted and appear unchanged from the prior study. IMPRESSION: COMMINUTED IMPACTED FRACTURE OF THE SURGICAL NECK AND HUMERAL HEAD.
[2018-02-19] MEDS: Famotidine TAB* 20 MG PO SCH (09:36)
[2018-02-19] MEDS: Amiodarone TAB* 200 MG PO SCH (09:36)
[2018-02-19] MEDS: Diltiazem CD CAP* 120 MG PO SCH (09:36)
[2018-02-19] MEDS: Metoprolol Succinate XL TAB* 100 MG PO SCH (09:36)
[2018-02-19] MEDS: Docusate CAP* 100 MG PO SCH (09:37)
[2018-02-19] MEDS: Senna TAB PO SCH (09:37)
[2018-02-19] MEDS: DULoxetine DR CAP* 60 MG CAP.DR PO SCH (10:05)
[2018-02-19] MEDS ORDERED: ceFAZolin 2 GM PREMIX (*) 2 GM/50 ML BAG IVPB ONE (13:17)
--- NOTE | 2018-02-19 13:32 | PN ---
Progress Note - Progress Note Date of Service: 02/19/18 Note: Pt seen and examined. Feeling ok. NPO. Pain controlled. In sling. Temp Pulse Resp BP Pulse Ox 98.2 F 80 16 144/51 93 02/19/18 11:36 02/19/18 11:36 02/19/18 13:04 02/19/18 11:36 02/19/18 11:36 NAD. AAOx3, RUE sling in place. skin intact. breathing comfortably. pleasant mood, normal affect. SILT grossly distally. able to flex/ext digits. brisk cap refill A/P Plan for ORIF R proximal humerus. Did reiterate risks including nonunion, malunion, need for further surgery. Risks of avn. Explained it is a bad injury that could be treated numerous ways.
[2018-02-19] MEDS ORDERED: Midazolam* 1 MG/ML 2 ML VIAL (2 MG) ONE (14:02)
[2018-02-19] MEDS ORDERED: fentaNYL* 50 MCG/ML 2 ML VIAL (100 MCG VIAL) ONE (14:02)
[2018-02-19] MEDS ORDERED: Propofol* 10 MG/ML 20 ML BTL IV PUSH ONE (14:03)
[2018-02-19] MEDS ORDERED: ROPIVACAINE 5 MG/ML 30 ML BTL (0.5%) ONE (14:22)
[2018-02-19] MEDS ORDERED: Lidocaine 1% INJ* 10 MG/ML 30 ML SDV ONE (15:37)
[2018-02-19] MEDS ORDERED: Bupivacaine 0.25% SDV* 30 ML ONE (15:37)
[2018-02-19] MEDS ORDERED: Lidocaine 1% MPF wEPI 200,000* 30 ML SDV ONE (15:37)
[2018-02-19] MEDS ORDERED: Etomidate* 2 MG/ML 10 ML VIAL ONE (17:18)
[2018-02-19] MEDS ORDERED: Phenylephrine INJ* 10 MG/ML 1 ML VIAL (10 MG) ONE (17:18)
--- NOTE | 2018-02-19 17:35 | RAD ---
INDICATION: Right shoulder ORIF, right humerus fracture, fall COMPARISONS: February 18, 2015 TECHNIQUE: Fluoroscopy was provided for a surgical procedure. Total fluoroscopy time is: 31.2 seconds FINDINGS: Spot images demonstrate internal fixation of the proximal humerus. IMPRESSION: FLUOROSCOPY WAS PROVIDED FOR A SURGICAL PROCEDURE CPT II Codes: G9500
[2018-02-19] MEDS ORDERED: Naloxone* 0.4 MG/ML 1 ML VIAL IV PRN (18:16)
[2018-02-19] MEDS ORDERED: fentaNYL* 50 MCG/ML 2 ML VIAL (100 MCG VIAL) IV PRN (18:16)
--- NOTE | 2018-02-19 19:54 | PN ---
Subjective Date of Service: 02/19/18 Interval History: f/u HOCM Patient had surgery, no major issues No CP, dyspnea Mildly hypertensive Hopefully weaning 02 Murmur slightly improved tele sinus Medications Active Medications: Acetaminophen (Tylenol Tab*) 650 mg PO Q4H PRN PRN Reason: FEVER/PAIN Amiodarone HCl (Cordarone Tab*) 100 mg PO DAILY [facility] Last Admin: 02/19/18 09:36 Dose: 100 mg Diltiazem HCl (Cardizem Cd Cap*) 120 mg PO DAILY [facility] Last Admin: 02/19/18 09:36 Dose: 120 mg Docusate Sodium (Colace Cap*) 200 mg PO DAILY [facility] Last Admin: 02/19/18 09:37 Dose: 200 mg Duloxetine HCl (Cymbalta Cap*) 60 mg PO DAILY [facility] Last Admin: 02/19/18 10:05 Dose: 60 mg Estradiol (Climara Patch 0.05 Mg/Day*) 1 patch TRANSDERM We@1100 [facility] Famotidine (Pepcid Tab*) 20 mg PO DAILY [facility] Last Admin: 02/19/18 09:36 Dose: 20 mg Fentanyl Citrate (Fentanyl*) 25 mcg IV Q5M PRN PRN Reason: PAIN - MODERATE Stop: 02/19/18 23:00 Heparin Sodium (Porcine) (Heparin Vial(*)) 5,000 units SUBCUT Q8HR [facility] Last Admin: 02/19/18 14:44 Dose: Not Given Hydromorphone HCl (Dilaudid Inj*) 1 mg IV SLOW PU Q2H PRN PRN Reason: PAIN Last Admin: 02/19/18 11:41 Dose: 1 mg Sodium Chloride (Ns 0.9% 1000 Ml*) 1,000 mls @ 75 mls/hr IV PER RATE [facility] Last Admin: 02/19/18 03:51 Dose: 75 mls/hr Metoprolol Succinate (Toprol Xl Tab*) 100 mg PO DAILY [facility] Last Admin: 02/19/18 09:36 Dose: 100 mg Morphine Sulfate (Morphine Vial*) 4 mg IV Q2H PRN PRN Reason: PAIN Naloxone HCl (Narcan*) 0.08 mg IV Q2M PRN PRN Reason: severe induced resp depression Stop: 02/20/18 18:15 Oxycodone HCl (Roxycodone Tab*) 5 mg PO Q3H PRN PRN Reason: PAIN Oxycodone HCl (Roxycodone Tab*) 10 mg PO Q4H PRN PRN Reason: PAIN Last Admin: 02/19/18 06:13 Dose: 10 mg Senna (Senokot Tab*) 1 tab PO DAILY [facility] Last Admin: 02/19/18 09:37 Dose: 1 tab Zolpidem Tartrate (Ambien Tab*) 10 mg PO BEDTIME [facility] PRN Reason: Protocol Last Admin: 02/18/18 20:42 Dose: 10 mg Objective Vital Signs: Temp Pulse Resp BP Pulse Ox 100.3 F 66 13 148/52 98 02/19/18 19:48 02/19/18 18:50 02/19/18 18:50 02/19/18 17:54 02/19/18 18:50 Oxygen Devices in Use Now: OxyMask Appearance: nad, has 02 face mask on Ears/Nose/Mouth/Throat: Clear Oropharnyx Neck: NL Appearance and Movements; NL JVP, Trachea Midline Respiratory: Symmetrical Chest Expansion and Respiratory Effort, Clear to Auscultation Cardiovascular: RRR, - - low pitched 2/6 systolic murmur lusb Abdominal: NL Sounds; No Tenderness; No Distention Extremities: No Clubbing, Cyanosis Skin: No Rash or Ulcers Neurological: Alert and Oriented x 3 Laboratory Results: 02/19/18 04:58 02/19/18 04:58 INR (Anticoag Therapy) 1.02 (0.77-1.02) 02/18/18 12:02 APTT 29.1 seconds (26.0-36.3) 02/19/18 12:02 Total Bilirubin 0.60 mg/dL (0.2-1.0) 02/18/18 11:54 AST 16 U/L (13-39) 02/18/18 11:54 ALT 10 U/L (7-52) 02/18/18 11:54 Alkaline Phosphatase 67 U/L (34-104) 02/18/18 11:54 Total Protein 5.9 g/dL (6.4-8.9) L 02/18/18 11:54 Albumin 3.4 g/dL (3.2-5.2) 02/18/18 11:54 Globulin 2.5 g/dL (2-4) 05/03/18 11:54 Albumin/Globulin Ratio 1.4 (1-3) 02/18/18 11:54 Diagnostic Imaging: Echo 02/18/2018 The left ventricular chamber size is normal. Moderate concentric left ventricular hypertrophy is observed. Basal septal hypertrophy and systolic anterior motion of the mitral valve are observed creating an outflow tract gradient. [Patient has an end systolic dynamic LVOT gradient of 7 m/s which is a peak gradient of 196 mmHg (very severely elevated at rest (without valsalva)] There is normal left ventricular systolic function. The estimated ejection fraction is 65-70% The left atrium is severely dilated. The right ventricular chamber size and systolic function are within normal limits. There is moderate aortic regurgitation. There is mild to moderate mitral regurgitation. There is moderate non-rheumatic mitral stenosis. There is evidence of moderate pulmonary hypertension. Compared to prior study from 07/2017, no clinically significant changes noted. cxr 02/18/2018: no acute findings EKG Data: 02/18/2018: NSR, LBBB Assessment/Plan Mrs. Blount has HTN and HOCM with mixed aortic/mitral valve disease now s/p OR right arm surgery POD 0, doing well. - Keep pre-load elevated, would use IV fluids as needed and this should be first treatment for low blood pressure. Can d/c once tolerating diet - Continue toprol and diltiazem - Can restart other anti-hypertensives tomorrow if needed for high BP one at a time - Severe hypotension should be treated with IV fluids and phenylephrine/ neosynephrine. PLEASE AVOID INOTROPES. We could also consider an echo guided esmolol infusion to monitor and reduce the outflow tract gradient if absolutely necessary. - Patient would be at high risk for hemodynamic collapse and flash pulmonary edema with the development of atrial fibrillation. If she were to develop atrial fibrillation she would need very close monitoring for development of complications with consideration of early external electrical cardioversion if any were to arise. DVT prophylaxis per primary service Thank you for allowing me to participate in the cardiovascular care of this patient. Please do not hesitate to contact me with questions or concerns.
[2018-02-19] MEDS: Zolpidem TAB* 10 MG PO SCH (21:22)
[2018-02-20] MEDS: Heparin VIAL(*) 5000 UNITS/ML VIAL (FIVE THOUSAND) SUBCUT SCH ×3 (07:03→21:18)
[2018-02-20] MEDS: HYDROmorphone INJ* 2 MG/ML CARPUJECT SYRINGE IV SLOW PU PRN (07:13)
--- NOTE | 2018-02-20 08:00 | PN ---
Progress Note - Progress Note Date of Service: 02/20/18 Note: Pt seen and examined at 6:45am. In pain overnight but took oral pain medications and one dose of dilaudid which allowed her to rest. Denies numbness and tingling. No shortness of breath. Temp Pulse Resp BP Pulse Ox 98.7 F 85 18 131/57 96 02/20/18 04:00 02/20/18 07:30 02/20/18 07:30 02/20/18 07:01 02/20/18 07:30 NAD. AAOx3. pleasant. sitting in bed. RUE: sling in place. icemachine and dressing in place. SILT grossly distally. 2+ radial pulse. flex/ext digits Laboratory Results - last 24 hr 02/19/18 12:02 APTT 29.1 A/P 77 yo F POD#1 from ORIF R proximal humerus NWB. may use walker but should mostly to guide along allowed to have elbow, hand, and wrist ROM pendulums xrays acceptable post op abx for 24 hrs analgesia sling at all times except for exercises. will see back in office on 14 days discussed with patient that if her pain is controlled and she mobilizes with PT she is allowed to go home (as long as medically stable) No ER or IR, no active ROM, no lifting/pushing/pulling other than gently pushing walker.
[2018-02-20] MEDS: Diltiazem CD CAP* 120 MG PO SCH (08:32)
[2018-02-20] MEDS: NS 0.9% 1000 ML* 1,000 ML IV SCH ×2 (08:32→22:38)
[2018-02-20] MEDS: Amiodarone TAB* 200 MG PO SCH (08:33)
[2018-02-20] MEDS: Senna TAB PO SCH (08:33)
[2018-02-20] MEDS: Docusate CAP* 100 MG PO SCH (08:34)
[2018-02-20] MEDS: Metoprolol Succinate XL TAB* 100 MG PO SCH (08:34)
[2018-02-20] MEDS: Famotidine TAB* 20 MG PO SCH (08:34)
[2018-02-20] MEDS: ceFAZolin 1 GM in Dextrose (*) 1 GM/50 ML BAG IVPB SCH ×2 (08:57→16:47)
[2018-02-20] MEDS: oxyCODONE TAB* 5 MG TAB PO PRN ×3 (08:59→21:18)
[2018-02-20] MEDS ORDERED: Valsartan TAB* 160 MG PO SCH (09:00)
[2018-02-20 09:10] LABS: Hematocrit 24 % (35-47); Hemoglobin 7.9 g/dl (12.0-16.0); Mean Corpuscular HGB Conc 33 g/dl (31-36); Mean Corpuscular Hemoglobin 29 pg (27-31); Mean Corpuscular Volume 86 fL (80-97); Mean Platelet Volume 7.9 um3 (7.4-10.4); Platelet Count 344 10^3/ul (150-450); Red Blood Count 2.74 10^6/ul (4.0-5.4); Red Cell Distribution Width 15 % (10.5-15); White Blood Count 13.8 10^3/ul (3.5-10.8)
[2018-02-20 09:24] LABS: EGFR Non-African American 78.3 (>60)
--- NOTE | 2018-02-20 09:49 | PN ---
Subjective Date of Service: 02/20/18 Interval History: f/u HOCM No CP, dyspnea Requiring 02 nasal canula Murmur worse today tele sinus Medications Active Medications: Acetaminophen (Tylenol Tab*) 650 mg PO Q4H PRN PRN Reason: FEVER/PAIN Amiodarone HCl (Cordarone Tab*) 100 mg PO DAILY [facility] Last Admin: 02/20/18 08:33 Dose: 100 mg Diltiazem HCl (Cardizem Cd Cap*) 120 mg PO DAILY [facility] Last Admin: 02/20/18 08:32 Dose: 120 mg Docusate Sodium (Colace Cap*) 200 mg PO DAILY [facility] Last Admin: 02/20/18 08:34 Dose: 200 mg Duloxetine HCl (Cymbalta Cap*) 60 mg PO DAILY [facility] Last Admin: 02/19/18 10:05 Dose: 60 mg Estradiol (Climara Patch 0.05 Mg/Day*) 1 patch TRANSDERM We@1100 [facility] Famotidine (Pepcid Tab*) 20 mg PO DAILY [facility] Last Admin: 02/20/18 08:34 Dose: 20 mg Heparin Sodium (Porcine) (Heparin Vial(*)) 5,000 units SUBCUT Q8HR [facility] Last Admin: 02/20/18 07:03 Dose: 5,000 units Hydromorphone HCl (Dilaudid Inj*) 1 mg IV SLOW PU Q2H PRN PRN Reason: PAIN Last Admin: 02/20/18 07:13 Dose: 1 mg Sodium Chloride (Ns 0.9% 1000 Ml*) 1,000 mls @ 75 mls/hr IV PER RATE [facility] Last Admin: 02/20/18 08:32 Dose: 75 mls/hr Cefazolin Sodium/Dextrose (Kefzol 1 Gm In Dextrose Duplex (*)) 1 gm in 50 mls @ 200 mls/hr IVPB Q8H [facility] Last Admin: 02/20/18 08:57 Dose: 200 mls/hr Metoprolol Succinate (Toprol Xl Tab*) 100 mg PO DAILY [facility] Last Admin: 02/20/18 08:34 Dose: 100 mg Morphine Sulfate (Morphine Vial*) 4 mg IV Q2H PRN PRN Reason: PAIN Naloxone HCl (Narcan*) 0.08 mg IV Q2M PRN PRN Reason: severe induced resp depression Stop: 02/20/18 18:15 Oxycodone HCl (Roxycodone Tab*) 5 mg PO Q3H PRN PRN Reason: PAIN Oxycodone HCl (Roxycodone Tab*) 10 mg PO Q4H PRN PRN Reason: PAIN Last Admin: 02/20/18 08:59 Dose: 10 mg Senna (Senokot Tab*) 1 tab PO DAILY [facility] Last Admin: 02/20/18 08:33 Dose: 1 tab Zolpidem Tartrate (Ambien Tab*) 10 mg PO BEDTIME [facility] PRN Reason: Protocol Last Admin: 02/19/18 21:22 Dose: 10 mg Objective Vital Signs: Temp Pulse Resp BP Pulse Ox 98.8 F 80 26 138/45 96 02/20/18 07:52 02/20/18 09:20 02/20/18 09:20 02/20/18 09:01 02/20/18 09:20 Oxygen Devices in Use Now: High Flow Nasal Cannula Appearance: nad, has 02 face mask on Ears/Nose/Mouth/Throat: Clear Oropharnyx Neck: NL Appearance and Movements; NL JVP, Trachea Midline Respiratory: Symmetrical Chest Expansion and Respiratory Effort, Clear to Auscultation Cardiovascular: RRR, - - harsh 3/6 systolic murmur lusb Abdominal: NL Sounds; No Tenderness; No Distention Extremities: No Clubbing, Cyanosis Skin: No Rash or Ulcers Neurological: Alert and Oriented x 3 Laboratory Results: 02/20/18 08:50 02/20/18 08:50 INR (Anticoag Therapy) 1.02 (0.77-1.02) 02/18/18 12:02 APTT 29.1 seconds (26.0-36.3) 02/19/18 12:02 Total Bilirubin 0.60 mg/dL (0.2-1.0) 02/18/18 11:54 AST 16 U/L (13-39) 02/18/18 11:54 ALT 10 U/L (7-52) 02/18/18 11:54 Alkaline Phosphatase 67 U/L (34-104) 02/18/18 11:54 Total Protein 5.9 g/dL (6.4-8.9) L 02/18/18 11:54 Albumin 3.4 g/dL (3.2-5.2) 02/18/18 11:54 Globulin 2.5 g/dL (2-4) 02/18/18 11:54 Albumin/Globulin Ratio 1.4 (1-3) 02/18/18 11:54 Diagnostic Imaging: Echo 02/18/2018 The left ventricular chamber size is normal. Moderate concentric left ventricular hypertrophy is observed. Basal septal hypertrophy and systolic anterior motion of the mitral valve are observed creating an outflow tract gradient. [Patient has an end systolic dynamic LVOT gradient of 7 m/s which is a peak gradient of 196 mmHg (very severely elevated at rest (without valsalva)] There is normal left ventricular systolic function. The estimated ejection fraction is 65-70% The left atrium is severely dilated. The right ventricular chamber size and systolic function are within normal limits. There is moderate aortic regurgitation. There is mild to moderate mitral regurgitation. There is moderate non-rheumatic mitral stenosis. There is evidence of moderate pulmonary hypertension. Compared to prior study from 07/2017, no clinically significant changes noted. cxr 02/18/2018: no acute findings EKG Data: 02/18/2018: NSR, LBBB Assessment/Plan Mrs. Blount has HTN and HOCM with mixed aortic/mitral valve disease now s/p OR right arm surgery POD 1, doing well. - Keep pre-load elevated, would use IV fluids as needed and this should be first treatment for low blood pressure. Can d/c once tolerating diet - Continue toprol and diltiazem - Hgb 7.9 today, old prior anti-hypertensives for today - Severe hypotension should be treated with IV fluids and phenylephrine/ neosynephrine. PLEASE AVOID INOTROPES. We could also consider an echo guided esmolol infusion to monitor and reduce the outflow tract gradient if absolutely necessary. - Patient would be at high risk for hemodynamic collapse and flash pulmonary edema with the development of atrial fibrillation. If she were to develop atrial fibrillation she would need very close monitoring for development of complications with consideration of early external electrical cardioversion if any were to arise. DVT prophylaxis per primary service Recommend to d/c a-line today Thank you for allowing me to participate in the cardiovascular care of this patient. Please do not hesitate to contact me with questions or concerns.
--- NOTE | 2018-02-20 10:53 | PN ---
Subjective Date of Service: 02/19/18 - Late entry Interval History: Ms. Blount is assessed immediately upon arrival to the ICU. She is awake and smiling and stating that she is thankful for our care. She denies chest pain, SOB, nausea, or abdominal pain. She reports no pain her right shoulder at this time. Objective Active Medications: Acetaminophen (Tylenol Tab*) 650 mg PO Q4H PRN Amiodarone HCl (Cordarone Tab*) 100 mg PO DAILY [facility] Diltiazem HCl (Cardizem Cd Cap*) 120 mg PO DAILY [facility] Docusate Sodium (Colace Cap*) 200 mg PO DAILY [facility] Duloxetine HCl (Cymbalta Cap*) 60 mg PO DAILY [facility] Estradiol (Climara Patch 0.05 Mg/Day*) 1 patch TRANSDERM We@1100 [facility] Famotidine (Pepcid Tab*) 20 mg PO DAILY [facility] Heparin Sodium (Porcine) (Heparin Vial(*)) 5,000 units SUBCUT Q8HR [facility] Hydromorphone HCl (Dilaudid Inj*) 1 mg IV SLOW PU Q2H PRN Sodium Chloride (Ns 0.9% 1000 Ml*) 1,000 mls @ 75 mls/hr IV PER RATE [facility] Cefazolin Sodium/Dextrose (Kefzol 1 Gm In Dextrose Duplex (*)) 1 gm in 50 mls @ 200 mls/hr IVPB Q8H [facility] Metoprolol Succinate (Toprol Xl Tab*) 100 mg PO DAILY [facility] Morphine Sulfate (Morphine Vial*) 4 mg IV Q2H PRN Naloxone HCl (Narcan*) 0.08 mg IV Q2M PRN Oxycodone HCl (Roxycodone Tab*) 5 mg PO Q3H PRN Oxycodone HCl (Roxycodone Tab*) 10 mg PO Q4H PRN Senna (Senokot Tab*) 1 tab PO DAILY [facility] Zolpidem Tartrate (Ambien Tab*) 10 mg PO BEDTIME [facility] . Oxygen Devices in Use Now: Nasal Cannula Appearance: Elderly female lying in bed in NAD Eyes: No Scleral Icterus Ears/Nose/Mouth/Throat: Mucous Membranes Moist Neck: Trachea Midline Respiratory: Symmetrical Chest Expansion and Respiratory Effort, Clear to Auscultation Cardiovascular: NL Sounds; No Murmurs; No JVD, No Edema Abdominal: NL Sounds; No Tenderness; No Distention Extremities: No Edema Skin: No Rash or Ulcers Neurological: Alert and Oriented x 3, NL Muscle Strength and Tone Result Diagrams: 02/20/18 08:50 02/20/18 08:50 Additional Lab and Data: . Microbiology and Other Data: . Assess/Plan/Problems-Billing Assessment: Ms. Blount is a 77 yo F with a PMH of HOCM and afib who was admitted on 02/18/18 after a mechanical fall at home resulting in a right humerus fracture, s/p ORIF R proximal humerus. - Patient Problems (1) Humerus fracture Comment: - POD # 0 s/p ORIF. - Management per ortho - Pain meds prn with bowel regimen. - PT/OT. - Monitor H/H to keep preload high given HOCM. (2) Hypertrophic cardiomyopathy Comment: - Appreciate cardiology consultation. - Patient doing well thus far. Will continue to monitor pre-load, continue IVF and transfuse as needed. Art line in place, BP good. (3) Atrial fibrillation with rapid ventricular response Comment: - Remains in NSR. - Continue amiodarone, metoprolol and diltiazem. - Appreciate cardiology consultation, patient would likely not tolerate afib well given hx of HOCM and should be considered for early electrical cardioversion if needed. (4) Hyperlipidemia Comment: - Continue atorvastatin in substitute for rosuvastatin. (5) HTN (hypertension) Comment: - SBP 140-160. - Continuing metoprolol, diltiazem. (6) Hyponatremia Comment: - Stable, asymptomatic. (7) DVT prophylaxis Comment: - SQ heparin (8) Full code status Comment: Status and Disposition: Inpatient. Anticipate discharge to home when medically stable.
[2018-02-20] MEDS: DULoxetine DR CAP* 60 MG CAP.DR PO SCH (11:00)
--- NOTE | 2018-02-20 11:05 | PN ---
Subjective Date of Service: 02/20/18 Interval History: Ms Blount reports feeling well this morning though she feels tired. She denies chest pain, SOB, nausea, or abdominal pain. She reports that her right shoulder pain is well controlled at the moment. Objective Active Medications: Acetaminophen (Tylenol Tab*) 650 mg PO Q4H PRN Amiodarone HCl (Cordarone Tab*) 100 mg PO DAILY [facility] Atorvastatin Calcium (Lipitor*) 40 mg PO 1700 [facility] Diltiazem HCl (Cardizem Cd Cap*) 120 mg PO DAILY [facility] Docusate Sodium (Colace Cap*) 200 mg PO DAILY [facility] Duloxetine HCl (Cymbalta Cap*) 60 mg PO DAILY [facility] Estradiol (Climara Patch 0.05 Mg/Day*) 1 patch TRANSDERM We@1100 [facility] Famotidine (Pepcid Tab*) 20 mg PO DAILY [facility] Heparin Sodium (Porcine) (Heparin Vial(*)) 5,000 units SUBCUT Q8HR [facility] Hydromorphone HCl (Dilaudid Inj*) 1 mg IV SLOW PU Q2H PRN Sodium Chloride (Ns 0.9% 1000 Ml*) 1,000 mls @ 75 mls/hr IV PER RATE [facility] Cefazolin Sodium/Dextrose (Kefzol 1 Gm In Dextrose Duplex (*)) 1 gm in 50 mls @ 200 mls/hr IVPB Q8H [facility] Metoprolol Succinate (Toprol Xl Tab*) 100 mg PO DAILY [facility] Morphine Sulfate (Morphine Vial*) 4 mg IV Q2H PRN Naloxone HCl (Narcan*) 0.08 mg IV Q2M PRN Oxycodone HCl (Roxycodone Tab*) 5 mg PO Q3H PRN Oxycodone HCl (Roxycodone Tab*) 10 mg PO Q4H PRN Senna (Senokot Tab*) 1 tab PO DAILY [facility] Vital Signs: Temp Pulse Resp BP Pulse Ox 98.8 F 80 26 138/45 96 02/20/18 07:52 02/20/18 09:20 02/20/18 09:20 02/20/18 09:01 02/20/18 09:20 Oxygen Devices in Use Now: High Flow Nasal Cannula, Other - Salter canula Appearance: Elderly female lying in bed in NAD Eyes: No Scleral Icterus Ears/Nose/Mouth/Throat: NL Teeth, Lips, Gums Neck: Trachea Midline Respiratory: Symmetrical Chest Expansion and Respiratory Effort Cardiovascular: RRR, - - Prominent systolic murmur heard in all kaufman Abdominal: NL Sounds; No Tenderness; No Distention Extremities: No Edema Skin: No Rash or Ulcers Neurological: Alert and Oriented x 3, NL Muscle Strength and Tone Nutrition: Taking PO's Result Diagrams: 02/20/18 08:50 02/20/18 08:50 Additional Lab and Data: . Microbiology and Other Data: . Assess/Plan/Problems-Billing Assessment: Ms. Blount is a 77 yo F with a PMH of HOCM and afib who was admitted on 02/18/18 after a mechanical fall at home resulting in a right humerus fracture, s/p ORIF R proximal humerus. - Patient Problems (1) Humerus fracture Comment: - POD # 1 s/p ORIF. - Management per ortho - Pain meds prn with bowel regimen. - PT/OT. - Monitor H/H to keep preload high given HOCM. (2) Hypoxia Comment: - Patient on 4L NC. - Suspect significant component of atelectasis, mobilize with PT. - No evidence of infection, will monitor closely. (3) Hypertrophic cardiomyopathy Comment: - Appreciate cardiology consultation. - Patient doing well thus far. Will continue to monitor pre-load, continue IVF and transfuse as needed. D/C art line. (4) Atrial fibrillation with rapid ventricular response Comment: - Remains in NSR. - Continue amiodarone, metoprolol and diltiazem. Will need to resume xarelto when approved per ortho. - Appreciate cardiology consultation, patient would likely not tolerate afib well given hx of HOCM and should be considered for early electrical cardioversion if needed. (5) Hyperlipidemia Comment: - Continue atorvastatin in substitute for rosuvastatin. (6) HTN (hypertension) Comment: - SBP 140-160. - Continuing metoprolol, diltiazem. (7) Hyponatremia Comment: - Stable, asymptomatic. (8) DVT prophylaxis Comment: - SQ heparin (9) Full code status Comment: Status and Disposition: Inpatient. Anticipate discharge to home when medically stable.
--- NOTE | 2018-02-20 13:36 | OP ---
CC: PCP OPERATIVE REPORT: DATE OF OPERATION: 02/19/18 DATE OF : 38 SURGEON: Cortney Gutierrez MD. INSPECTOR PAWNSHOP DETAIL: Luann Manzano MD. SECOND INSPECTOR PAWNSHOP DETAIL: MATILDE Cesar. ANESTHESIOLOGIST: Dr. Mckeon. ANESTHESIA: Initially regional and then required intubation in the middle of the case. PRE-OP DIAGNOSIS: Right proximal humerus fracture. POST-OP DIAGNOSIS: Right proximal humerus fracture. OPERATIVE PROCEDURE: Open reduction and internal fixation of right displaced surgical neck fracture with comminution, open biceps tenodesis due to entrapped biceps tendon COMPLICATIONS: Block did not work fast enough and require intubation and art line placement, otherwise no complication and pt remained stable throughout the case. ESTIMATED BLOOD LOSS: 150. IMPLANT USED: Synthes proximal humerus plate, a short one with the appropriate length screws; locking and nonlocking. INDICATIONS: Mariam Blount is a 77-year-old female who was recently recovering from a right total knee arthroplasty that was done at [facility] approximately 2 weeks ago. She was then getting down from her high bed to her step and lost her balance and she took off on a run down the room and landed on her right side. She felt a pop and a crack and initially thought her shoulder was dislocated. She notified her family, who brought her to the ER. She was diagnosed with proximal humerus facture. Risks and benefits surgical versus nonoperative treatment were discussed, different options were discussed including a reverse shoulder arthroplasty as well as an open reduction and internal fixation. The patient has a complicated medical history and required medical optimization by the medicine team and due to that we discussed an ORIF as there might be less taxing on her intraoperatively. The risks include, but not limited to bleeding, infection, damage to nerves, vessels, surrounding structures, wound nonhealing, persistent pain, need for further surgery, scarring, stiffness, incomplete relief of symptoms, risks of anesthesia, failure , nonunion, malunion, need for further surgery, conversion to reverse, AVN. DESCRIPTION OF PROCEDURE: The patient was greeted in the preoperative area by the attending surgeon. Correct extremity was marked and the consent was confirmed. The patient underwent interscalene nerve block by the anesthesiologist after which she was brought back to the operating suite. She was placed supine position on the operating table. Then All bony prominences were padded. She was placed in a lazy beech chair position. The right shoulder was prepped and draped in a usual sterile fashion beginning with chlorhexidine soap scrub, and alcohol wipe and a final prep with ChloraPrep. After appropriate surgical pause indicating site, side, procedure and administration of antibiotics, an incision was made. At this time, as the patient only under local MAC, she was reported that she could feel the incision ; therefore, decision was made to intubate her. After this was done, the surgery commenced and the incision was completed. The soft tissue was carefully dissected to expose the fracture and the cephalic vein, which has taken laterally with the deltoid. The pec was identified as well. Soft tissues were carefully dissected. Blunt retractors were used to retract the deltoid until the Kolbel retractor was placed, the adhesions were released using a Kirkpatrick, finger dissection as well as a blunt Mayos. This allowed for mobilization of the proximal fragment. The fracture was evident. The fracture was debrided back. The excess hematoma was debrided back. The pec was identified and biceps and the biceps groove was identified and used as a landmark. The soft tissue was carefully dissected. Care was taken to mobilize the large proximal fragment and not separate the tuberosity as they still seemed to move in 1 piece. Carefully, the shoulder was gently reduced and the head was carefully joystick'd onto the shaft, this appeared to be acceptable fixation. The biceps tendon was visualized and entrapped in the fragment. The head did want to tilt and collapse somewhat however. The bone quality proximally was very poor and there is a large vacuous place where bone graft needed to be placed. Sutures were passed through the bone-tendon interface of the subscapularis, supraspinatus, and infraspinatus tendons. These helped to gently mobilize and navigate the head. The proximal fragments were secured using the K- wires, which helped to provisionally reduce the fracture. At this point, a plate was chosen and placed lateral to the bicipital groove and this was secured with K- wires. Once this was stabilized, the shaft screw was first placed as a nonlocking screw to help provisionally fix this to the bone and the remaining screws are placed proximally. The locking screws are placed proximally. There was sufficient bone in the calcar; however, the bone in the head was very poor quality. At this point, the reduction was deemed acceptable and the remainder of screws were filled proximally as well as screws distally on the shaft. The wound was copiously irrigated. Bone graft was packed into the bony defect that was around the screw. There is no evidence of penetration of any of the screws through the subchondral bone. In the rotator cuff the previously passed #5 Ethibond sutures were passed through the plate to help secure the tuberosity to the plate as well. The shoulder was taken through the range of motion, found to be stable. The biceps was then tenodesed to the pec major tendon using a heavy nonabsorbably suture and tenotomized proximal to that. The wound was copiously irrigated with sterile saline. The deltopec interval was closed with #2 Ethibond in interrupted fashion. The wound was irrigated again and the subcu was closed with 2-0 Vicryl and the skin with Monocryl. Sterile dressings were applied. She was awoken from anesthesia and transferred to the PACU in stable condition. She is considered guarded and was placed in the ICU overnight. Intraoperatively, there was also an art-line placed in the upper extremity. POSTOPERATIVE PLAN: She will be nonweightbearing. She will be allowed elbow, hand, and wrist range of motion, pendulum exercises, no external or internal rotation of the shoulder. She is allowed to use a walker, but she is not allowed to lift and put a lot of weight with it. She can slide a roller walker. We will monitor in hospital; when she is stable with pain control, we will discharge her and follow her closely. She can see me in the office in approximately 10 to 14 days. [id number]/[facility] #: [id number] ALLAN
[2018-02-20] MEDS: Atorvastatin* 40 MG TAB PO SCH (16:47)
[2018-02-20] MEDS: Zolpidem TAB* 10 MG PO SCH (21:18)
[2018-02-21] MEDS: ceFAZolin 1 GM in Dextrose (*) 1 GM/50 ML BAG IVPB SCH ×3 (01:18→19:48)
[2018-02-21] MEDS: Heparin VIAL(*) 5000 UNITS/ML VIAL (FIVE THOUSAND) SUBCUT SCH ×3 (05:27→22:18)
[2018-02-21 05:53] LABS: ABS Basophils 0 10^3/ul (0-0.2); ABS Eosinophils 0.2 10^3/ul (0-0.6); ABS Lymphocytes 0.7 10^3/ul (1.0-4.8); ABS Neutrophils 8.1 10^3/ul (1.5-7.7); ABS Nucleated RBC 0 10^3/ul; Eosinophil % 2.2 % (0-6); Hematocrit 22 % (35-47); Hemoglobin 7.4 g/dl (12.0-16.0); Lymphocyte % 7.1 % (25-47); Mean Corpuscular HGB Conc 33 g/dl (31-36); Mean Corpuscular Hemoglobin 29 pg (27-31); Mean Corpuscular Volume 86 fL (80-97); Mean Platelet Volume 7.8 um3 (7.4-10.4); Nucleated Red Blood Cells % 0; Platelet Count 285 10^3/ul (150-450); Red Cell Distribution Width 16 % (10.5-15); White Blood Count 10.1 10^3/ul (3.5-10.8)
[2018-02-21] MEDS: Diltiazem CD CAP* 120 MG PO SCH (08:29)
[2018-02-21] MEDS: Docusate CAP* 100 MG PO SCH (08:29)
[2018-02-21] MEDS: Senna TAB PO SCH (08:29)
[2018-02-21] MEDS: DULoxetine DR CAP* 60 MG CAP.DR PO SCH (08:29)
[2018-02-21] MEDS: Famotidine TAB* 20 MG PO SCH (08:29)
[2018-02-21] MEDS: Metoprolol Succinate XL TAB* 100 MG PO SCH (08:30)
[2018-02-21] MEDS: Amiodarone TAB* 200 MG PO SCH (08:30)
--- NOTE | 2018-02-21 08:40 | PN ---
Subjective Date of Service: 02/21/18 Interval History: f/u HOCM No CP, dyspnea Requiring 02 nasal canula Murmur better today hemoglobin trending down, may be in part dilutional tele sinus Medications Active Medications: Acetaminophen (Tylenol Tab*) 650 mg PO Q4H PRN PRN Reason: FEVER/PAIN Amiodarone HCl (Cordarone Tab*) 100 mg PO DAILY [facility] Last Admin: 02/21/18 08:30 Dose: 100 mg Atorvastatin Calcium (Lipitor*) 40 mg PO 1700 [facility] Last Admin: 02/20/18 16:47 Dose: 40 mg Diltiazem HCl (Cardizem Cd Cap*) 120 mg PO DAILY [facility] Last Admin: 02/21/18 08:29 Dose: 120 mg Docusate Sodium (Colace Cap*) 200 mg PO DAILY [facility] Last Admin: 02/21/18 08:29 Dose: 200 mg Duloxetine HCl (Cymbalta Cap*) 60 mg PO DAILY [facility] Last Admin: 02/21/18 08:29 Dose: 60 mg Estradiol (Climara Patch 0.05 Mg/Day*) 1 patch TRANSDERM We@1100 [facility] Famotidine (Pepcid Tab*) 20 mg PO DAILY [facility] Last Admin: 02/21/18 08:29 Dose: 20 mg Heparin Sodium (Porcine) (Heparin Vial(*)) 5,000 units SUBCUT Q8HR [facility] Last Admin: 02/21/18 05:27 Dose: 5,000 units Hydromorphone HCl (Dilaudid Inj*) 1 mg IV SLOW PU Q2H PRN PRN Reason: PAIN Last Admin: 02/20/18 07:13 Dose: 1 mg Cefazolin Sodium/Dextrose (Kefzol 1 Gm In Dextrose Duplex (*)) 1 gm in 50 mls @ 200 mls/hr IVPB Q8H [facility] Last Admin: 02/21/18 08:28 Dose: 200 mls/hr Metoprolol Succinate (Toprol Xl Tab*) 100 mg PO DAILY [facility] Last Admin: 02/21/18 08:30 Dose: 100 mg Morphine Sulfate (Morphine Vial*) 4 mg IV Q2H PRN PRN Reason: PAIN Last Admin: 02/20/18 16:51 Dose: 4 mg Oxycodone HCl (Roxycodone Tab*) 5 mg PO Q3H PRN PRN Reason: PAIN Oxycodone HCl (Roxycodone Tab*) 10 mg PO Q4H PRN PRN Reason: PAIN Last Admin: 02/20/18 21:18 Dose: 10 mg Senna (Senokot Tab*) 1 tab PO DAILY [facility] Last Admin: 02/21/18 08:29 Dose: 1 tab Zolpidem Tartrate (Ambien Tab*) 10 mg PO BEDTIME [facility] PRN Reason: Protocol Last Admin: 02/20/18 21:18 Dose: 10 mg Objective Vital Signs: Temp Pulse Resp BP Pulse Ox 98.6 F 80 21 153/58 92 02/21/18 07:20 02/21/18 07:01 02/21/18 07:01 02/21/18 07:00 02/21/18 07:01 Oxygen Devices in Use Now: Nasal Cannula Appearance: nad, has 02 face mask on Ears/Nose/Mouth/Throat: Clear Oropharnyx Neck: NL Appearance and Movements; NL JVP, Trachea Midline Respiratory: Symmetrical Chest Expansion and Respiratory Effort, Clear to Auscultation Cardiovascular: RRR, - - low pitched 1-2/6 systolic murmur lusb Abdominal: NL Sounds; No Tenderness; No Distention Extremities: No Clubbing, Cyanosis Skin: No Rash or Ulcers Neurological: Alert and Oriented x 3 Laboratory Results: 02/21/18 05:33 02/20/18 08:50 INR (Anticoag Therapy) 1.02 (0.77-1.02) 02/18/18 12:02 APTT 29.1 seconds (26.0-36.3) 02/19/18 12:02 Total Bilirubin 0.60 mg/dL (0.2-1.0) 02/18/18 11:54 AST 16 U/L (13-39) 02/18/18 11:54 ALT 10 U/L (7-52) 02/18/18 11:54 Alkaline Phosphatase 67 U/L (34-104) 02/18/18 11:54 Total Protein 5.9 g/dL (6.4-8.9) L 02/18/18 11:54 Albumin 3.4 g/dL (3.2-5.2) 02/18/18 11:54 Globulin 2.5 g/dL (2-4) 02/18/18 11:54 Albumin/Globulin Ratio 1.4 (1-3) 02/18/18 11:54 Diagnostic Imaging: Echo 02/18/2018 The left ventricular chamber size is normal. Moderate concentric left ventricular hypertrophy is observed. Basal septal hypertrophy and systolic anterior motion of the mitral valve are observed creating an outflow tract gradient. [Patient has an end systolic dynamic LVOT gradient of 7 m/s which is a peak gradient of 196 mmHg (very severely elevated at rest (without valsalva)] There is normal left ventricular systolic function. The estimated ejection fraction is 65-70% The left atrium is severely dilated. The right ventricular chamber size and systolic function are within normal limits. There is moderate aortic regurgitation. There is mild to moderate mitral regurgitation. There is moderate non-rheumatic mitral stenosis. There is evidence of moderate pulmonary hypertension. Compared to prior study from 07/2017, no clinically significant changes noted. cxr 02/18/2018: no acute findings EKG Data: 02/18/2018: NSR, LBBB Assessment/Plan Mrs. Blount has HTN and HOCM with mixed aortic/mitral valve disease now s/p OR right arm surgery POD 2, doing well. - d/c IVF (ordered), suspect anemia in part dilutional - Continue toprol and diltiazem - Continue to prior anti-hypertensives for today - Severe hypotension should be treated with IV fluids and phenylephrine/ neosynephrine. PLEASE AVOID INOTROPES. We could also consider an echo guided esmolol infusion to monitor and reduce the outflow tract gradient if absolutely necessary. - Patient would be at high risk for hemodynamic collapse and flash pulmonary edema with the development of atrial fibrillation. If she were to develop atrial fibrillation she would need very close monitoring for development of complications with consideration of early external electrical cardioversion if any were to arise. DVT prophylaxis per primary service Add flutter/IS (ordered) Thank you for allowing me to participate in the cardiovascular care of this patient. Please do not hesitate to contact me with questions or concerns.
[2018-02-21 10:15] LABS: EGFR Non-African American 89.7 (>60)
--- NOTE | 2018-02-21 10:31 | PN ---
Progress Note - Progress Note Date of Service: 02/21/18 SOAP: Subjective: Pt. reports pain is 8/10 in R shoulder with any movement. She needs assistance to get out of bed. Objective: RUE - dressing changed, mild ss drainage inf incision. distally min swelling in fingers and nvi. RLE - inc c/d/i. distally nvi. full ext - 80 deg flexions. Vital Signs: Temp Pulse Resp BP Pulse Ox 98.6 F 84 17 134/53 94 02/21/18 07:20 02/21/18 09:00 02/21/18 09:00 02/21/18 09:00 02/21/18 09:00 Laboratory Results - last 24 hr 02/21/18 02/21/18 05:33 09:50 WBC 10.1 RBC 2.60 L Hgb 7.4 L Hct 22 L MCV 86 MCH 29 MCHC 33 RDW 16 H Plt Count 285 MPV 7.8 Neut % (Auto) 80.3 Lymph % (Auto) 7.1 L [place] % (Auto) 10.1 H Eos % (Auto) 2.2 Baso % (Auto) 0.3 Absolute Neuts (auto) 8.1 H Absolute Lymphs (auto) 0.7 L Absolute Monos (auto) 1.0 H Absolute Eos (auto) 0.2 Absolute Basos (auto) 0 Absolute Nucleated RBC 0 Nucleated RBC % 0 Sodium 131 L Potassium 3.5 Chloride 99 L Carbon Dioxide 26 Anion Gap 6 BUN 8 Creatinine 0.64 Est GFR ( Amer) 115.4 Est GFR (Non-Af Amer) 89.7 BUN/Creatinine Ratio 12.5 Glucose 163 H Calcium 7.9 L Assessment: 77 yo F pod 2 s/p orif R prox humerus fx, 2 weeks s/p RTKA Plan: recommend 2 units prbc kapoor cath d/c'ed today or tomorrow cont. mobilizing with PT nwb rue, wbat rle
[2018-02-21] MEDS: oxyCODONE TAB* 5 MG TAB PO PRN ×3 (12:03→22:24)
[2018-02-21] MEDS: HYDROmorphone INJ* 2 MG/ML CARPUJECT SYRINGE IV SLOW PU PRN (14:28)
--- NOTE | 2018-02-21 15:08 | PN ---
Subjective Date of Service: 02/21/18 Interval History: Ms. Blount reports that she is feeling very well and she is eager for discharge to home tomorrow if possible. She reports that her shoulder only hurts when she moves around but otherwise she is comfortable. She denies chest pain, SOB, nausea, or abdominal pain. Objective Active Medications: Acetaminophen (Tylenol Tab*) 650 mg PO Q4H PRN Amiodarone HCl (Cordarone Tab*) 100 mg PO DAILY [facility] Atorvastatin Calcium (Lipitor*) 40 mg PO 1700 [facility] Diltiazem HCl (Cardizem Cd Cap*) 120 mg PO DAILY [facility] Docusate Sodium (Colace Cap*) 200 mg PO DAILY [facility] Duloxetine HCl (Cymbalta Cap*) 60 mg PO DAILY [facility] Estradiol (Climara Patch 0.05 Mg/Day*) 1 patch TRANSDERM We@1100 [facility] Famotidine (Pepcid Tab*) 20 mg PO DAILY [facility] Heparin Sodium (Porcine) (Heparin Vial(*)) 5,000 units SUBCUT Q8HR [facility] Hydromorphone HCl (Dilaudid Inj*) 1 mg IV SLOW PU Q2H PRN Cefazolin Sodium/Dextrose (Kefzol 1 Gm In Dextrose Duplex (*)) 1 gm in 50 mls @ 200 mls/hr IVPB Q8H [facility] Metoprolol Succinate (Toprol Xl Tab*) 100 mg PO DAILY [facility] Oxycodone HCl (Roxycodone Tab*) 5 mg PO Q3H PRN Oxycodone HCl (Roxycodone Tab*) 10 mg PO Q4H PRN Senna (Senokot Tab*) 1 tab PO DAILY [facility] Zolpidem Tartrate (Ambien Tab*) 10 mg PO BEDTIME [facility] Vital Signs: Temp Pulse Resp BP Pulse Ox 97.7 F 71 20 128/39 94 02/21/18 13:39 02/21/18 13:39 02/21/18 14:28 02/21/18 13:39 02/21/18 13:39 Oxygen Devices in Use Now: Nasal Cannula Appearance: Female lying in bed in NAD Eyes: No Scleral Icterus Ears/Nose/Mouth/Throat: NL Teeth, Lips, Gums Neck: NL Appearance and Movements; NL JVP Respiratory: Symmetrical Chest Expansion and Respiratory Effort, Clear to Auscultation Cardiovascular: NL Sounds; No Murmurs; No JVD, - - harsh systolic murmur Abdominal: No Hepatosplenomegaly Extremities: No Edema Skin: No Rash or Ulcers Neurological: Alert and Oriented x 3, NL Muscle Strength and Tone Nutrition: Taking PO's Result Diagrams: 02/21/18 05:33 02/21/18 09:50 Additional Lab and Data: . Microbiology and Other Data: . Assess/Plan/Problems-Billing Assessment: Ms. Blount is a 77 yo F with a PMH of HOCM and afib who was admitted on 02/18/18 after a mechanical fall at home resulting in a right humerus fracture, s/p ORIF R proximal humerus. - Patient Problems (1) Humerus fracture Comment: - POD # 2 s/p ORIF. - Management per ortho - Pain meds prn with bowel regimen. - PT/OT. - H/H fell to 7.4 today. Plan for 2 units PRBC to maintain preload. SBP 130s, HR 70s. (2) Anemia Comment: - Acute blood loss anemia, significant dilutional component as well given IVF in arie-operative period. - Hgb down from 7.9 -> 7.4 today. - Agree with transfusion of 2 units PRBC today. (3) Hypoxia Comment: - Patient on 2L NC. - Suspect significant component of atelectasis, mobilize with PT. - No evidence of infection, will monitor closely. (4) Hypertrophic cardiomyopathy Comment: - Appreciate cardiology consultation. - Patient doing well thus far. Will continue to monitor pre-load, continue IVF and transfuse x 2 units PRBC today. (5) Atrial fibrillation with rapid ventricular response Comment: - Remains in NSR. - Continue amiodarone, metoprolol and diltiazem. Will need to resume xarelto when approved per ortho. - Appreciate cardiology consultation, patient would likely not tolerate afib well given hx of HOCM and should be considered for early electrical cardioversion if needed. (6) Hyperlipidemia Comment: - Continue atorvastatin in substitute for rosuvastatin. (7) HTN (hypertension) Comment: - SBP 140-160. - Continuing metoprolol, diltiazem. (8) Hyponatremia Comment: - Stable, asymptomatic. (9) DVT prophylaxis Comment: - SQ heparin (10) Full code status Comment: Status and Disposition: Inpatient. Anticipate discharge to home when medically stable.
[2018-02-21] MEDS: Atorvastatin* 40 MG TAB PO SCH (17:24)
[2018-02-21] MEDS ORDERED: Polyethylene Glycol 3350* 17 GM PACKET PO PRN (20:45)
[2018-02-21] MEDS: Zolpidem TAB* 10 MG PO SCH (20:52)
[2018-02-22] MEDS: oxyCODONE TAB* 5 MG TAB PO PRN (06:03)
[2018-02-22] MEDS: Heparin VIAL(*) 5000 UNITS/ML VIAL (FIVE THOUSAND) SUBCUT SCH ×2 (06:04→13:47)
[2018-02-22 06:16] LABS: ABS Basophils 0 10^3/ul (0-0.2); ABS Eosinophils 0.4 10^3/ul (0-0.6); ABS Lymphocytes 0.9 10^3/ul (1.0-4.8); ABS Monocytes 0.9 10^3/ul (0-0.8); ABS Neutrophils 6.1 10^3/ul (1.5-7.7); ABS Nucleated RBC 0 10^3/ul; Eosinophil % 5.1 % (0-6); Hematocrit 28 % (35-47); Hemoglobin 9.4 g/dl (12.0-16.0); Lymphocyte % 11.1 % (25-47); Mean Corpuscular HGB Conc 34 g/dl (31-36); Mean Corpuscular Hemoglobin 28 pg (27-31); Mean Corpuscular Volume 85 fL (80-97); Mean Platelet Volume 7.9 um3 (7.4-10.4); Nucleated Red Blood Cells % 0; Platelet Count 299 10^3/ul (150-450); Red Blood Count 3.33 10^6/ul (4.0-5.4); Red Cell Distribution Width 15 % (10.5-15); White Blood Count 8.5 10^3/ul (3.5-10.8)
[2018-02-22 06:34] LABS: EGFR Non-African American 79.6 (>60)
[2018-02-22] MEDS: Amiodarone TAB* 200 MG PO SCH (08:44)
[2018-02-22] MEDS: Acetaminophen TAB* 325 MG PO PRN ×2 (08:44→14:20)
[2018-02-22] MEDS: Senna TAB PO SCH (08:46)
[2018-02-22] MEDS: Diltiazem CD CAP* 120 MG PO SCH (08:47)
[2018-02-22] MEDS: Metoprolol Succinate XL TAB* 100 MG PO SCH (08:48)
[2018-02-22] MEDS: Famotidine TAB* 20 MG PO SCH (08:48)
[2018-02-22] MEDS: DULoxetine DR CAP* 60 MG CAP.DR PO SCH (08:48)
[2018-02-22] MEDS: Docusate CAP* 100 MG PO SCH (08:49)
--- NOTE | 2018-02-22 11:29 | PN ---
Progress Note - Progress Note Date of Service: 02/22/18 SOAP: Subjective: 77 y/o female POD#3 s/p orif R prox humerus fx, ~2 weeks s/p RTKA Patient reports pain under control well, no complaints. Eager for D/C home. VSS, afebrile overnight. Objective: General- Well appearing, NAD, AO, Sitting in chair comfortably MSK- RLE- Dressing changed, i d/c/i, no drainage noted from incision, small skin tear distal to incision with serous drainage noted, new dressing placed. RLE- incision over knee c/d/i, steri strips in place, neg homans, + df/pf, ROM 0 -85 Vital Signs Temp 97.9 F 02/22/18 11:31 Pulse 64 02/22/18 11:31 Resp 16 02/22/18 11:31 BP 132/47 02/22/18 11:31 Pulse Ox 96 02/22/18 08:00 Intake & Output 02/21/18 02/22/18 02/22/18 18:59 06:59 18:59 Intake Total 320 1180 0 Output Total 1050 550 300 Balance -730 630 -300 Weight 67.495 kg Intake: Oral 320 850 0 Packed Cells 330 Output: Urine 200 550 300 Mccracken 850 Other: Estimated Void Medium # Voids 1 Assessment: Stable POD#3 s/p orif R prox humerus fx, ~2 weeks s/p RTKA Plan: - DVT prophylaxis- heparin in house, to resume Xarelto at D/C per hospitalists. - Continue PT/ OT as shown - Follow up with Dr. Gutierrez/ Jose Juan within 10-14 days - H&H - Stable, s/p transfusion 2 Units 5/6. - Post-op IV ABX - Completed. - D/C to home today, patient has 24 hour care at home and would like for D/C. Acetaminophen (Tylenol Tab*) 650 mg PO Q4H PRN PRN Reason: FEVER/PAIN Last Admin: 02/22/18 08:44 Dose: 650 mg Amiodarone HCl (Cordarone Tab*) 100 mg PO DAILY [facility] Last Admin: 02/22/18 08:44 Dose: 100 mg Atorvastatin Calcium (Lipitor*) 40 mg PO 1700 [facility] Last Admin: 02/21/18 17:24 Dose: 40 mg Diltiazem HCl (Cardizem Cd Cap*) 120 mg PO DAILY [facility] Last Admin: 02/22/18 08:47 Dose: 120 mg Docusate Sodium (Colace Cap*) 200 mg PO DAILY [facility] Last Admin: 02/22/18 08:49 Dose: 200 mg Duloxetine HCl (Cymbalta Cap*) 60 mg PO DAILY [facility] Last Admin: 02/22/18 08:48 Dose: 60 mg Estradiol (Climara Patch 0.05 Mg/Day*) 1 patch TRANSDERM We@1100 [facility] Famotidine (Pepcid Tab*) 20 mg PO DAILY [facility] Last Admin: 02/22/18 08:48 Dose: 20 mg Laboratory Results - last 24 hr 02/21/18 02/22/18 02/22/18 05:33 05:34 05:34 WBC 8.5 RBC 3.33 L Hgb 9.4 L Hct 28 L MCV 85 MCH 28 MCHC 34 RDW 15 Plt Count 299 MPV 7.9 Neut % (Auto) 72.4 Lymph % (Auto) 11.1 L Marion % (Auto) 11.1 H Eos % (Auto) 5.1 Baso % (Auto) 0.3 Absolute Neuts (auto) 6.1 Absolute Lymphs (auto) 0.9 L Absolute Monos (auto) 0.9 H Absolute Eos (auto) 0.4 Absolute Basos (auto) 0 Absolute Nucleated RBC 0 Nucleated RBC % 0 Sodium 131 L Potassium 3.8 Chloride 99 L Carbon Dioxide 26 Anion Gap 6 BUN 11 Creatinine 0.71 Est GFR ( Amer) 102.4 Est GFR (Non-Af Amer) 79.6 BUN/Creatinine Ratio 15.5 Glucose 111 H Calcium 8.1 L Blood Type O Positive Antibody Screen Negative Crossmatch See Detail Heparin Sodium (Porcine) (Heparin Vial(*)) 5,000 units SUBCUT Q8HR [facility] Last Admin: 02/22/18 06:04 Dose: 5,000 units Hydromorphone HCl (Dilaudid Inj*) 1 mg IV SLOW PU Q2H PRN PRN Reason: PAIN Last Admin: 02/21/18 14:28 Dose: 1 mg Metoprolol Succinate (Toprol Xl Tab*) 100 mg PO DAILY [facility] Last Admin: 02/22/18 08:48 Dose: 100 mg Oxycodone HCl (Roxycodone Tab*) 5 mg PO Q3H PRN PRN Reason: PAIN Last Admin: 02/22/18 01:14 Dose: 5 mg Oxycodone HCl (Roxycodone Tab*) 10 mg PO Q4H PRN PRN Reason: PAIN Last Admin: 02/22/18 06:03 Dose: 10 mg Polyethylene Glycol/Electrolytes (Miralax*) 17 gm PO DAILY PRN PRN Reason: CONSTIPATION Last Admin: 02/21/18 20:52 Dose: 17 gm Senna (Senokot Tab*) 1 tab PO DAILY [facility] Last Admin: 02/22/18 08:46 Dose: 1 tab Zolpidem Tartrate (Ambien Tab*) 10 mg PO BEDTIME [facility] PRN Reason: Protocol Last Admin: 02/21/18 20:52 Dose: 10 mg
[2018-02-22 11:45] VITALS: BP 132/47
[2018-02-24] MEDS ORDERED: Estradiol PATCH 0.05MG/DAY* 1 PATCH TRANSDERM SCH (11:00)
--- NOTE | 2018-03-17 19:16 | DS ---
DISCHARGE SUMMARY: DATE OF ADMISSION: 02/18/18 DATE OF DISCHARGE: 02/23/18 PRINCIPAL DISCHARGE DIAGNOSES: 1. Mechanical fall. 2. Right proximal humerus fracture. 3. Atrial fibrillation with rapid ventricular rate. SECONDARY DISCHARGE DIAGNOSES: 1. Hypertrophic obstructive cardiomyopathy. 2. Anemia, requiring transfusion. 3. Hypertension. 4. History of adenocarcinoma of the chest wall. HOSPITAL COURSE BY PROBLEM: Ms. Blount was admitted after a mechanical fall and was found to have proximal right humerus fracture. Orthopedic Surgery was consulted and planned to take her to the operating room for surgical repair. Cardiology was consulted preoperatively given her history of HOCM. She was seen in consultation by Dr. Bravo, who recommended volume repletion to keep preload elevated and avoidance of hypotension. He also recommended continuation of metoprolol and diltiazem, and placing afterload reduction on hold including valsartan and amlodipine. She underwent surgery with Dr. Gutierrez on 02/20/18. The procedure was open reduction and internal fixation with open biceps tenodesis due to intraarticular biceps tendon. The surgery was without complication except that intubation and A line placement was required; however, she was able to be extubated quickly in PACU. She is to be nonweightbearing and will follow up with Dr. Gutierrez in the office 10 days postoperatively. She did have some blood loss anemia perioperatively and required 2 units of packed red blood cells on this admission. On 02/23/18, she was discharged to home after being evaluated and cleared by Orthopedic Surgery and Physical Therapy, and instructed to follow up with Dr. Johnson, Dr. Gutierrez, and Dr. Bravo. She is instructed to return to the emergency department with any new pain, shortness of breath, syncope, lightheadedness or other new symptoms. [id number]/[facility] #: [id number] ALLAN
== END 2018-02-22 14:10 | disposition home health service (06) | DRG 315 ==
LOC: ED 10:17 → SSU 11:59 → ICU 02-19 19:15 → SSU 02-21 13:24
PROVIDERS: ADMIT Internal Medicine; ATTEND Internal Medicine
PROC: 0LS30ZZ Reposition Right Upper Arm Tendon, Open Approach (ICD-10-PCS; 2018-02-19)
PROC: 0PSC04Z Reposition Right Humeral Head with Internal Fixation Device, Open Approach (ICD-10-PCS; principal; 2018-02-19 14:00)
PROC: 30233N1 Transfusion of Nonautologous Red Blood Cells into Peripheral Vein, Percutaneous Approach (ICD-10-PCS; 2018-02-21)
DX: S42.211A Unspecified displaced fracture of surgical neck of right humerus, initial encounter for closed fracture (principal); I42.1 Obstructive hypertrophic cardiomyopathy; E87.1 Hypo-osmolality and hyponatremia; D62 Acute posthemorrhagic anemia; S42.261A Displaced fracture of lesser tuberosity of right humerus, initial encounter for closed fracture; I10 Essential (primary) hypertension; E78.5 Hyperlipidemia, unspecified; F41.9 Anxiety disorder, unspecified; W18.30XA Fall on same level, unspecified, initial encounter; I08.0 Rheumatic disorders of both mitral and aortic valves; I48.91 Unspecified atrial fibrillation; R09.02 Hypoxemia; K21.9 Gastro-esophageal reflux disease without esophagitis; M19.042 Primary osteoarthritis, left hand; M19.041 Primary osteoarthritis, right hand; M17.0 Bilateral primary osteoarthritis of knee; M06.9 Rheumatoid arthritis, unspecified; S46.111A Strain of muscle, fascia and tendon of long head of biceps, right arm, initial encounter; F32.9 Major depressive disorder, single episode, unspecified; I95.9 Hypotension, unspecified; I44.7 Left bundle-branch block, unspecified; Z96.651 Presence of right artificial knee joint; Z88.7 Allergy status to serum and vaccine; Z85.89 Personal history of malignant neoplasm of other organs and systems; Z88.8 Allergy status to other drugs, medicaments and biological substances; Z83.3 Family history of diabetes mellitus; Z82.49 Family history of ischemic heart disease and other diseases of the circulatory system; Z72.89 Other problems related to lifestyle; Z80.8 Family history of malignant neoplasm of other organs or systems; Z82.3 Family history of stroke; Y92.002 Bathroom of unspecified non-institutional (private) residence as the place of occurrence of the external cause; Z90.710 Acquired absence of both cervix and uterus
CPT/HCPCS: 36415; 71045; 76001; 80048; 80053; 81003; 81015; 85025; 85027; 85610; 85730; 86850; 86900; 86901; 86922; 87086; 93005; 93306; 99284; A9270-GY; C1713; C1776; G8978-GP-CK; G8978-GP-CM; G8979-GP-CI; G8979-GP-CK; J0690; J1170; J1644; J1885; J2001; J2250; J2270; J2405; J2704; J2795; J3010; P9040

== ENCOUNTER 2018-07-29 07:22 | Observation (INO) | payer BC ==
--- NOTE | 2018-07-24 00:41 | HP ---
CC: Dr. Johnson; Dr. Almeida; Dr. Lozano * ADMISSION HISTORY AND PHYSICAL: DATE OF ADMISSION: 07/29/18. ATTENDING SURGEON: Dr. Geronimo Tarango.* (DICTATED BY MATILDE NAJERA) CHIEF COMPLAINT: Left breast cancer. HISTORY OF PRESENT ILLNESS: This is a 77-year-old female who noted a mass in the inner aspect of the left breast in early May. She underwent a mammogram on 06/07/18, which did not show any suspicious changes in ultrasound from the same date, did describe a mass in the inferior medial portion of the left breast located 3 to 4 cm from the nipple measuring 3.8 x 2.6 x 10 cm. She was seen in the office by Dr. Tarango on 06/09/18 and fine needle aspiration was performed at that time. 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 A PET scan per Dr. Almeida's notes showed no increased metabolic activity. An MRI showed minimal enhancement in the area of the lesion. Initially, Dr. Almeida was contemplating neoadjuvant chemotherapy, but at this point, plan is to proceed directly with surgery. Of note, the cancer is estrogen positive and HER2/сергей negative. 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 Metastatic workup was unremarkable at that time and it is felt to be unrelated to the current left breast cancer. The patient understands the indication for surgery. The risks, benefits, and alternatives as well as the expected perioperative course. She would like to proceed to schedule with left mastectomy with sentinel lymph node biopsy. PAST MEDICAL HISTORY: Hypertension, history of atrial fibrillation. She was admitted to the hospital here in the last year, a year before for sepsis possibly related to colitis. This is treated conservatively. She did have a positive stool culture for C. diff at that time though flexible sigmoidoscopy done during that admission showed no evidence of C. diff colitis (see separate report). Hypertrophic cardiomyopathy. PAST SURGICAL HISTORY: She has had a number of surgeries including most recently ORIF of right humerus fracture 02/19/18 done here at [facility]. She had undergone right total knee replacement in [place] in January of this year. She has had surgery of multiple fingers in the left hand. She has had a prior hysterectomy with unilateral oophorectomy for benign disease many years ago. No reported surgical or anesthesia complications other than that a block for her recent right shoulder surgery did not take well. CURRENT MEDICATIONS: 1. Candesartan 16 mg once daily. 2. Meloxicam 15 mg once daily or ibuprofen 800 mg once daily p.r.n. for pain. 3. Amlodipine 5 mg once daily. 4. Amiodarone 100 mg once daily. 5. Voltaren 1% topical p.r.n. 6. Metoprolol succinate extended release 100 mg once daily. 7. Atorvastatin 10 mg once daily. 8. Duloxetine 60 mg once daily. 9. Ambien CR 12.5 mg nightly. 10. The patient had recently been using Vivelle-Dot (estrogen patch), but this has been stopped since her recent workup. ALLERGIES: LISINOPRIL (cough), HORSE-DERIVED SERUM (localized swelling). FAMILY HISTORY: Positive for breast cancer in a paternal grandmother, who is postmenopausal. No additional family breast or ovarian cancer history. No family history of anesthesia problems, bleeding or clotting disorder. SOCIAL HISTORY: The patient is and her accompanies her today. She denies use of tobacco. She drinks 1 drink on occasion, but not daily. She denies any other drug use. REVIEW OF SYSTEMS: General: No recent constitutional symptoms or acute illnesses other than described in the HPI. HEENT: No problems reported. Cardiovascular: Shows a history of hypertrophic cardiomyopathy (see separate note from both Dr. Almeida and Dr. Lozano), hypertension, aortic stenosis and regurgitation, mitral valve stenosis and regurgitation, arthritis. History of atrial fibrillation during her admission for sepsis. She states that she is no longer in atrial fibrillation, but is maintained on amiodarone. Respiratory: No shortness of breath or chronic cough. GI: No problems reported. She has never had a colonoscopy other than the flexible sigmoidoscopy to 30 cm as noted above in 2016. She refuses screening colonoscopy. : No problems reported. [employer]AC[employer] MEMBER: No additions to the HPI. Musculoskeletal: She is still finishing the physical therapy for her right shoulder fracture and is status post right knee replacement. Multiple areas of arthritis. Endocrine: No diabetes or thyroid dysfunction. PHYSICAL EXAMINATION GENERAL: Well-nourished, well-developed female, in no acute distress. VITAL SIGNS: Height 5 feet, weight 138 pounds, temperature 97.7, blood pressure 116/64, pulse 74. SKIN: Warm and dry. No suspicious rashes or lesions noted. HEENT: Pupils are small. EOMs are intact. No conjunctival pallor. Oropharynx : No intraoral lesions. Teeth in good repair. NECK: No lymphadenopathy in the cervical or supraclavicular regions. There is a well-healed scar over the sternal notch and slightly over the right clavicular head. LUNGS: Clear to auscultation. No rales or wheezes. HEART: Regular rate and rhythm with grade 2-3/6 systolic murmur heard throughout the precordium, but loudest at the right parasternal area. BREASTS: As per Dr. Tarango's exam, not repeated today. ABDOMEN: Soft, nontender to palpation. No palpable masses or organomegaly. GENITALIA: Rectal not examined. BACK: No spinous process or CVA tenderness. EXTREMITIES: Well-healed right knee incision. No peripheral edema. NEUROLOGIC: Grossly intact. IMPRESSION: Left breast cancer. PLAN/RECOMMENDATIONS: Left mastectomy with sentinel lymph node biopsy. MATILDE NAJERA [id number]/[facility] #: [id number] [facility]
[~2018-07-29 07:22] MED LIST: Buffered Lidocaine 0.9% SYRIN* 5 ML/SYR SYRINGE INTRADERM ONE; Dexamethasone TAB* 4 MG PO ONE; DiMENhydriNATE IV* 50 MG/ML VIAL IV PUSH PRN; Famotidine IV* 10 MG/ML 2 ML (20 mg) IV ONE; Morphine VIAL* 4 MG/ML VIAL (1 ml vial) IV PRN; Naloxone* 0.4 MG/ML 1 ML VIAL IV PRN; Ondansetron TAB* 4 MG PO ONE; PROCHLORPERAZINE INJ 5 MG/ML 2 ML VIAL IV PRN; fentaNYL* 50 MCG/ML 2 ML VIAL (100 MCG VIAL) IV PRN; oxyCODONE/Acetamin 5/325 MG* TAB PO PRN
[2018-07-29] MEDS ORDERED: Buffered Lidocaine 0.9% SYRIN* 5 ML/SYR SYRINGE ONE (07:34)
[2018-07-29] MEDS ORDERED: Lidocaine 2.5%/Prilocain 2.5%* 5 GM TUBE ONE (07:34)
[2018-07-29] MEDS ORDERED: Midazolam* 1 MG/ML 5 ML VIAL (5 MG) ONE (10:30)
[2018-07-29] MEDS ORDERED: KETAMINE HCL* 50 MG/ML 10 ML VIAL ONE (10:30)
[2018-07-29] MEDS ORDERED: fentaNYL* 50 MCG/ML 2 ML VIAL (100 MCG VIAL) ONE (10:30)
--- NOTE | 2018-07-29 10:30 | RAD ---
INDICATION: LEFT breast cancer. Lymph node mapping. PROCEDURE: The risks and benefits of the procedure were explained to the patient. Written informed consent was obtained. 0.301 mCi total of filtered sulfur colloid were injected intradermal in 4 divided doses along the 4 quadrants of the LEFT areola. Spot images?were?obtained?of?the?thorax with the ipsilateral arm over the head. Solitary ipsilateral axillary sentinal node marked on the skin utilizing a point source. IMPRESSION: Successful lymphoscintigraphy.
[2018-07-29] MEDS ORDERED: Ondansetron ODT TAB* 4 MG ONE (10:40)
[2018-07-29] MEDS ORDERED: Famotidine IV* 10 MG/ML 2 ML (20 mg) ONE (10:40)
[2018-07-29] MEDS ORDERED: Heparin VIAL(*) 5000 UNITS/ML VIAL (FIVE THOUSAND) ONE (10:40)
[2018-07-29] MEDS ORDERED: Dexamethasone TAB* 4 MG ONE (10:40)
[2018-07-29] MEDS ORDERED: ceFAZolin 2 GM PREMIX in ORs 2 GM/50 ML BAG IVPB ONE (10:41)
[2018-07-29] MEDS ORDERED: Morphine VIAL* 10 MG/ML 1 ML VIAL ONE (12:04)
[2018-07-29] MEDS ORDERED: PROCHLORPERAZINE INJ 5 MG/ML 2 ML VIAL ONE (12:25)
[2018-07-29] MEDS ORDERED: Ketorolac INJ* 30 MG/ML 1 ML VIAL ONE (12:25)
[2018-07-29] MEDS ORDERED: Lidocaine 2% PF * 5 ML VIAL ONE (12:25)
[2018-07-29] MEDS ORDERED: Propofol* 10 MG/ML 20 ML BTL IV PUSH ONE (12:25)
[2018-07-29] MEDS ORDERED: Phenylephrine INJ* 10 MG/ML 1 ML VIAL (10 MG) ONE (12:25)
[2018-07-29] MEDS ORDERED: Acetaminophen TAB* 325 MG PO PRN (13:26)
[2018-07-29] MEDS ORDERED: HYDROmorphone INJ1* 1 MG/ML SYRINGE IV PRN (13:26)
[2018-07-29] MEDS ORDERED: Ondansetron INJ* 2 MG/ML VIAL IV PRN (13:26)
[2018-07-29] MEDS ORDERED: Flumazenil* 0.1 MG/ML 5 ML MDV ONE (14:21)
[2018-07-29] MEDS ORDERED: HYDROcodone/ACETAMIN 5-325 MG* 1 TAB ONE (15:18)
[2018-07-29] MEDS: HYDROcodone/ACETAMIN 5-325 MG* 1 TAB PO PRN ×2 (15:19→19:25)
[2018-07-29] MEDS: Docusate CAP* 100 MG PO SCH (21:57)
[2018-07-29] MEDS: Ibuprofen TAB* 600 MG PO PRN (21:57)
[2018-07-29] MEDS: Heparin VIAL(*) 5000 UNITS/ML VIAL (FIVE THOUSAND) SUBCUT SCH (21:59)
[2018-07-29] MEDS ORDERED: Zolpidem TAB* 10 MG PO SCH (23:00)
--- NOTE | 2018-07-30 06:15 | OP ---
CC: Dr. Tarango; Dr. Johnson; Dr. Lozano; Dr. Almeida OPERATIVE REPORT: DATE OF OPERATION: 07/29/18 DATE OF : 38 SURGEON: Geronimo Tarango MD S[employer] CR[employer]ING GUARD: MariaD olores Bashir NP ANESTHESIOLOGIST: Dr. Kumar. ANESTHESIA: General anesthetic. PRE-OP DIAGNOSIS: Left breast cancer. POST-OP DIAGNOSIS: Left breast cancer. OPERATIVE PROCEDURE: Left mastectomy with sentinel node biopsy. DESCRIPTION OF PROCEDURE: The patient was supine on the operating table. After adequate general ane sthetic, compression stockings, Fawn Hugger warmer, and intravenous antibiotics, the left chest and a xillary region were prepped with antiseptic and draped in a sterile fashion. Elliptical incision was mapped out encompassing the nipple-areolar complex as well as the area of the tumor in the lower inn er quadrant. An elliptical incision was created and inferior and superior flaps were created and the breast was taken off the pectoralis muscle in the subfascial plane. At the site of the tumor where it was virtually right on to the muscle, a little bit of muscle fiber was taken as well to ensure an adequate margin. Specimen was marked with a suture marking the lateral axillary aspect of the breast and sent in formalin for pathologic evaluation. Doddridge node excision was carried out using the na vigator probe and 2 sentinel nodes were identified, the first node was the hottest had a count of abo ut 1700, the second node only a count of about 150. The basin count was almost nil after this. Hemo stasis was obtained using suture or cautery where appropriate. A SOREN drain was brought in to the oper ative site, tunneled out inferolaterally and sutured at the skin with 3-0 Prolene. Closure was accom plished using 3-0 Vicryl and surgical beth followed by a sterile dressing and an [place] wrap. She to lerated the procedure well, was awakened and brought to Recovery in good condition. There were no co mplications. Drain was Ron Esteban. Sponge and instrument counts correct. Estimated blood loss 30 to 50 mL. Specimens were left mastectomy, left axillary node #1, left axillary node #2, and additio nal left axillary tissue. [id number]/[facility] #: [id number]
[2018-07-30] MEDS: Docusate CAP* 100 MG PO SCH (08:38)
[2018-07-30] MEDS: Heparin VIAL(*) 5000 UNITS/ML VIAL (FIVE THOUSAND) SUBCUT SCH (08:39)
[2018-07-30] MEDS ORDERED: amLODIPine TAB* 5 MG PO SCH (09:00)
[2018-07-30] MEDS ORDERED: Metoprolol Succinate XL TAB* 100 MG PO SCH (09:00)
[2018-07-30] MEDS ORDERED: Amiodarone TAB* 200 MG PO SCH (09:00)
[2018-07-30] MEDS ORDERED: DULoxetine DR CAP* 60 MG CAP.DR PO SCH (09:00)
[2018-07-30] MEDS ORDERED: Diltiazem CD CAP* 120 MG PO SCH (09:00)
[2018-07-30] MEDS ORDERED: Atorvastatin* 10 MG TAB PO SCH (09:00)
[2018-07-30] MEDS ORDERED: Valsartan TAB* 160 MG PO SCH (09:00)
--- NOTE | 2018-07-30 09:32 | PN ---
Progress Note - Progress Note Date of Service: 07/30/18 Note: S: (patient seen and examined by Dr. Tarango) Doing well this am. Minimal pain. Adela diet. O: Vital Signs - 8 hr 07/30/18 04:33 Pulse Rate 69 Respiratory 16 Rate Blood Pressure 121/49 (mmHg) O2 Sat by Pulse 99 Oximetry Intake and Output Last 24 Hours 07/28/18 07/29/18 07/30/18 07/31/18 06:59 06:59 06:59 06:59 Intake Total 2645 Output Total 990 300 Balance 1655 -300 Weight 139 lb Intake: IV Fluids 1820 LR 1790 NS (0.9%) 30 IVPB 55 ABX - CEFEPIME 55 Oral 770 Output: SOREN #1 190 Urine 800 300 SOREN: sang; tubing stripped. Left chest wall: min ecchymosis; no hematoma; dsgs replaced A: s/p L mastectomy w/ SLN bx, doing well P: home today; instructions reviewed; office f/u 08/04
[2018-07-30] MEDS: Ibuprofen TAB* 600 MG PO PRN (10:07)
[2018-07-30 12:04] VITALS: BP 132/55
--- NOTE | 2018-07-30 19:11 | DS ---
AMENDED REPORT NOW INCLUDES COSIGNER DESIGNATION CC: Dr. Geronimo Tarango, [facility]; Dr. Sanjeev Johnson; Dr. Rubio Almeida; Dr. Telly Lozano* DISCHARGE SUMMARY: DATE OF ADMISSION: 07/29/18 DATE OF DISCHARGE: 07/30/18 ATTENDING SURGEON: Dr. Geronimo Tarango* (MATILDE Arias dictating). HOSPITAL COURSE: Please refer to admission history and physical and operative note for details. The patient was taken to the operating room on 07/29/[address] Tarango and underwent left mastectomy with sentinel lymph node biopsy. Postoperative course has been otherwise unremarkable and as of the morning of discharge, her pain was well controlled and she was tolerating diet. The patient was seen with Dr. Tarango. PHYSICAL EXAMINATION: Temperature 97.7, blood pressure 121/49, pulse 69, respirations 16, room air saturation 99%. Ron-Esteban drainage was fairly sanguineous, but appeared to be declining in volume. The drainage tubing was stripped. The chest wall wound is clean with minimal drainage and mild-to- moderate ecchymosis. No evidence of hematoma. Wound is redressed. IMPRESSION: Status post left mastectomy with sentinel lymph node biopsy, pathology pending. PLAN: Home today. Instructions were reviewed. The patient will have home nursing available. She has a followup scheduled with our office on 08/04/[address] Tarango. MATILDE ARIAS [id number]/[facility] #: [id number] [facility]ENTERAurelio
== END 2018-07-30 11:45 | disposition home or self-care (01) ==
LOC: OR 07:22 → SSU 16:40
PROVIDERS: ADMIT Surgery; ATTEND Surgery
PROC: 07B60ZX Excision of Left Axillary Lymphatic, Open Approach, Diagnostic (ICD-10-PCS; 2018-07-29)
PROC: 0HTU0ZZ Resection of Left Breast, Open Approach (ICD-10-PCS; principal; 2018-07-29 10:30)
DX: C50.912 Malignant neoplasm of unspecified site of left female breast (principal); I10 Essential (primary) hypertension; I48.91 Unspecified atrial fibrillation; Z79.899 Other long term (current) drug therapy
CPT/HCPCS: 36415; 78195; 83690; 88307; 88342; A9270-GY; A9541; G0378; J0690; J0780; J1644; J1885; J2250; J2270; J2704; J3010; J8540

== ENCOUNTER 2020-05-11 10:53 | Inpatient (IN) ==
[2020-05-11] MEDS ORDERED: NS 0.9% 1000 ml BAG 1,000 ML IV.FLUID IV ONE (10:59)
[2020-05-11] MEDS ORDERED: Levofloxacin 750 MG IVPREMIX 750 MG/150 ML BAG IVPB ONE (11:01)
[2020-05-11] MEDS ORDERED: Piperacillin/Tazobac ADVAN 3.375 GM in NS 0.9% 100 ml BAG 100 ML IVPB ONE (11:01)
[2020-05-11 12:19] LABS: ABS Lymphocytes 0.8 10^3/ul (1.0-4.8); ABS Monocytes 1.1 10^3/ul (0-0.8); ABS Neutrophils 10.9 10^3/ul (1.5-7.7); Eosinophil % 0.3 %; Hematocrit 30 % (35-47); Hemoglobin 10.1 g/dL (12.0-16.0); Lymphocyte % 6.1 %; Mean Corpuscular HGB Conc 34 g/dL (31-36); Mean Corpuscular Hemoglobin 31 pg (27-31); Mean Corpuscular Volume 93 fL (80-97); Platelet Count 168 10^3/uL (150-450); Red Blood Count 3.21 10^6 /uL (3.70-4.87); Red Cell Distribution Width 13 % (10-15); White Blood Count 12.9 10^3/uL (3.5-10.8)
[2020-05-11 12:38] LABS: ALT 23 U/L (7-52); AST 24 U/L (13-39); Albumin 3.5 g/dL (3.2-5.2); Albumin/Globulin Ratio 1.6 (1-3); Alkaline Phosphatase 57 U/L (34-104); Anion Gap 6 mmol/L (2-11); BUN/Creatinine Ratio 20.6 (8-20); Blood Urea Nitrogen 21 mg/dL (6-24); C Reactive Protein 73.58 mg/L (<8.01); CO2 Carbon Dioxide 25 mmol/L (22-32); Calcium 8.5 mg/dL (8.6-10.3); Chloride 98 mmol/L (101-111); EGFR African American 63.1 (>60); EGFR Non-African American 52.1 (>60); Globulin 2.2 g/dL (2-4); Glucose 113 mg/dL (70-100); Potassium 4.1 mmol/L (3.5-5.0); Sodium 129 mmol/L (135-145); Total Protein 5.7 g/dL (6.4-8.9)
[2020-05-11 12:42] LABS: INR 0.97 (0.82-1.09)
[2020-05-11 12:45] LABS: Activated Partial Thrombo Time 16.6 seconds (26.0-38.0)
[2020-05-11 12:50] LABS: Troponin I 0.04 ng/mL (<0.03)
[2020-05-11 13:32] LABS: Urine Appearance Cloudy; Urine Bilirubin Negative (Negative); Urine Blood 3+ (Negative); Urine Color Yellow; Urine Glucose Negative (Negative); Urine Ketones Negative (Negative); Urine Nitrite Negative (Negative); Urine Protein 1+(30 mg/dL) (Negative); Urine Specific Gravity 1.013 (1.010-1.030); Urine Urobilinogen Negative (Negative)
[2020-05-11 13:48] LABS: Urine Bacteria 1+ (Absent); Urine Red Blood Cell 3+(>10/hpf) (Absent); Urine Squamous Epithelial Cell Present (Absent); Urine White Blood Cell 1+(6-10/hpf) (Absent)
[2020-05-11] MEDS ORDERED: Iodixanol (CONTRAST) 320 MG/ML 100 ML SDV IV ONE (13:54)
[2020-05-11] MEDS ORDERED: NS 0.9% 1000 ml BAG 1,000 ML IV SCH (14:15)
[2020-05-11 16:20] LABS: Troponin I 0.05 ng/mL (<0.03)
[2020-05-11 16:59] LABS: Total Iron Binding Capacity 336 mcg/dL (250-450); Transferrin 240 mg/dL (203-362)
[2020-05-11 17:27] LABS: Ferritin 73.1 ng/mL (11-307)
[2020-05-11 18:18] LABS: % Iron Saturation 6 % (15-55); Iron < 20 ug/dL (50-212); Unsaturated Iron Binding < 321 ug/dL
[2020-05-11 20:09] LABS: Hematocrit 29 % (35-47)
[2020-05-11 20:36] LABS: Troponin I 0.05 ng/mL (<0.03)
[2020-05-12] MEDS: cefTRIAXone 1 gm/50 mL NS BAG 1 GM/50 ML BAG IVPB SCH (07:29)
[2020-05-12] MEDS: CMCS: Rosuvastatin 5 mg TAB (NF) PO SCH (07:30)
[2020-05-12] MEDS: DULoxetine DR 60 mg CAP PO SCH (07:31)
[2020-05-12 08:55] LABS: ABS Eosinophils 0.2 10^3/ul (0-0.6); ABS Lymphocytes 0.5 10^3/ul (1.0-4.8); ABS Monocytes 1.1 10^3/ul (0-0.8); ABS Neutrophils 9.9 10^3/ul (1.5-7.7); Eosinophil % 1.5 %; Hematocrit 27 % (35-47); Hemoglobin 9.7 g/dL (12.0-16.0); Lymphocyte % 4.6 %; Mean Corpuscular HGB Conc 36 g/dL (31-36); Mean Corpuscular Hemoglobin 33 pg (27-31); Mean Corpuscular Volume 91 fL (80-97); Mean Platelet Volume 9.1 fL (7.4-10.4); Platelet Count 157 10^3/uL (150-450); Red Blood Count 2.98 10^6 /uL (3.70-4.87); Red Cell Distribution Width 13 % (10-15); White Blood Count 11.7 10^3/uL (3.5-10.8)
[2020-05-12 09:13] LABS: ALT 20 U/L (7-52); AST 24 U/L (13-39); Albumin 3.2 g/dL (3.2-5.2); Albumin/Globulin Ratio 1.4 (1-3); Alkaline Phosphatase 48 U/L (34-104); Anion Gap 8 mmol/L (2-11); Blood Urea Nitrogen 12 mg/dL (6-24); CO2 Carbon Dioxide 23 mmol/L (22-32); Calcium 7.6 mg/dL (8.6-10.3); Chloride 95 mmol/L (101-111); EGFR African American 83.5 (>60); Globulin 2.3 g/dL (2-4); Glucose 112 mg/dL (70-100); Magnesium 1.5 mg/dL (1.9-2.7); Potassium 3.8 mmol/L (3.5-5.0); Sodium 126 mmol/L (135-145); Total Protein 5.5 g/dL (6.4-8.9)
[2020-05-12 09:15] LABS: LDH 233 U/L (140-271)
[2020-05-12 09:29] LABS: Troponin I 0.13 ng/mL (<0.03)
[2020-05-12] MEDS: DOXYcycline 100 MG in NS 0.9% 250 ml 250 ML IVPB SCH ×2 (09:57→20:24)
[2020-05-12] MEDS ORDERED: Magnesium Sulfate IV 3 GM in NS 0.9% 100 ml BAG 100 ML IVPB ONE (12:00)
[2020-05-12 12:48] LABS: Creatine Kinase 177 U/L (10-223)
[2020-05-12 12:53] LABS: CKMB ng/mL 6.5 ng/mL (0.6-6.3)
[2020-05-12 12:55] LABS: Troponin I 0.12 ng/mL (<0.03)
[2020-05-12 15:54] LABS: TSH Ultra Thyroid Stim Horm 5.85 mcIU/mL (0.34-5.60)
[2020-05-13 06:21] LABS: ABS Eosinophils 0.3 10^3/ul (0-0.6); ABS Lymphocytes 0.7 10^3/ul (1.0-4.8); ABS Monocytes 0.9 10^3/ul (0-0.8); ABS Neutrophils 8.6 10^3/ul (1.5-7.7); Hematocrit 27 % (35-47); Hemoglobin 9.7 g/dL (12.0-16.0); Lymphocyte % 6.2 %; Mean Corpuscular HGB Conc 36 g/dL (31-36); Mean Corpuscular Hemoglobin 33 pg (27-31); Mean Corpuscular Volume 91 fL (80-97); Mean Platelet Volume 8.8 fL (7.4-10.4); Platelet Count 174 10^3/uL (150-450); Red Blood Count 2.98 10^6 /uL (3.70-4.87); Red Cell Distribution Width 12 % (10-15); White Blood Count 10.6 10^3/uL (3.5-10.8)
[2020-05-13 06:38] LABS: Anion Gap 5 mmol/L (2-11); BUN/Creatinine Ratio 15.7 (8-20); Blood Urea Nitrogen 11 mg/dL (6-24); CO2 Carbon Dioxide 22 mmol/L (22-32); Calcium 7.7 mg/dL (8.6-10.3); Chloride 97 mmol/L (101-111); EGFR African American 97.4 (>60); EGFR Non-African American 80.5 (>60); Glucose 108 mg/dL (70-100); Magnesium 1.9 mg/dL (1.9-2.7); Potassium 3.6 mmol/L (3.5-5.0); Sodium 124 mmol/L (135-145)
[2020-05-13] MEDS: CMCS: Rosuvastatin 5 mg TAB (NF) PO SCH (09:00)
[2020-05-13] MEDS: DULoxetine DR 60 mg CAP PO SCH (09:00)
[2020-05-13] MEDS: cefTRIAXone 1 gm/50 mL NS BAG 1 GM/50 ML BAG IVPB SCH (09:09)
[2020-05-13] MEDS: DOXYcycline 100 MG in NS 0.9% 250 ml 250 ML IVPB SCH ×2 (10:15→22:40)
[2020-05-13] MEDS ORDERED: Furosemide 20 mg/2 ml IV VIAL IV SLOW PU ONE (11:47)
[2020-05-14 06:09] LABS: ABS Eosinophils 0.5 10^3/ul (0-0.6); ABS Lymphocytes 1.1 10^3/ul (1.0-4.8); ABS Monocytes 0.9 10^3/ul (0-0.8); ABS Neutrophils 6.2 10^3/ul (1.5-7.7); Hematocrit 29 % (35-47); Hemoglobin 9.9 g/dL (12.0-16.0); Lymphocyte % 12.9 %; Mean Corpuscular HGB Conc 35 g/dL (31-36); Mean Corpuscular Hemoglobin 32 pg (27-31); Mean Corpuscular Volume 92 fL (80-97); Mean Platelet Volume 8.7 fL (7.4-10.4); Nucleated Red Blood Cells % 0.1; Platelet Count 223 10^3/uL (150-450); Red Blood Count 3.11 10^6 /uL (3.70-4.87); Red Cell Distribution Width 13 % (10-15); White Blood Count 8.8 10^3/uL (3.5-10.8)
[2020-05-14 06:16] LABS: BUN/Creatinine Ratio 15.1 (8-20); C Reactive Protein 98.89 mg/L (<8.01); Calcium 7.6 mg/dL (8.6-10.3); EGFR African American 92.8 (>60); EGFR Non-African American 76.7 (>60); Magnesium 1.7 mg/dL (1.9-2.7); Potassium 3.4 mmol/L (3.5-5.0)
[2020-05-14] MEDS ORDERED: Magnesium Sulfate 2 gm BAG 2 GM/50 ML BAG IVPB ONE (06:48)
[2020-05-14] MEDS ORDERED: Potassium Chloride LIQUID 20 MEQ/15 ML LIQUID PO ONE (07:17)
[2020-05-14] MEDS ORDERED: Iron Sucrose 200 MG in NS 0.9% 100 ml BAG 100 ML IVPB ONE (08:00)
[2020-05-14] MEDS: DULoxetine DR 60 mg CAP PO SCH (08:18)
[2020-05-14] MEDS: CMCS: Rosuvastatin 5 mg TAB (NF) PO SCH (08:19)
[2020-05-14] MEDS ORDERED: Furosemide 20 mg/2 ml IV VIAL IV ONE (09:03)
[2020-05-14] MEDS: cefTRIAXone 1 gm/50 mL NS BAG 1 GM/50 ML BAG IVPB SCH (10:09)
[2020-05-14] MEDS: DOXYcycline 100 MG in NS 0.9% 250 ml 250 ML IVPB SCH (11:25)
[2020-05-15] MEDS ORDERED: Iron Sucrose 200 MG in NS 0.9% 100 ml BAG 100 ML IVPB ONE (07:30)
[2020-05-15] MEDS: DULoxetine DR 60 mg CAP PO SCH (07:59)
[2020-05-15] MEDS: CMCS: Rosuvastatin 5 mg TAB (NF) PO SCH (07:59)
[2020-05-15 08:04] VITALS: BP 136/59
[2020-05-15] MEDS: cefTRIAXone 1 gm/50 mL NS BAG 1 GM/50 ML BAG IVPB SCH (08:06)
[2020-05-15 09:07] LABS: ABS Basophils 0.1 10^3/ul (0-0.2); ABS Eosinophils 0.5 10^3/ul (0-0.6); ABS Monocytes 0.9 10^3/ul (0-0.8); ABS Neutrophils 5.5 10^3/ul (1.5-7.7); Eosinophil % 6.5 %; Hematocrit 27 % (35-47); Hemoglobin 9.6 g/dL (12.0-16.0); Lymphocyte % 12.9 %; Mean Corpuscular HGB Conc 35 g/dL (31-36); Mean Corpuscular Hemoglobin 32 pg (27-31); Mean Corpuscular Volume 91 fL (80-97); Mean Platelet Volume 8.3 fL (7.4-10.4); Nucleated Red Blood Cells % 0.1; Platelet Count 247 10^3/uL (150-450); Red Blood Count 3.02 10^6 /uL (3.70-4.87); Red Cell Distribution Width 13 % (10-15); White Blood Count 7.9 10^3/uL (3.5-10.8)
[2020-05-15 09:24] LABS: BUN/Creatinine Ratio 12.3 (8-20); Calcium 7.8 mg/dL (8.6-10.3); EGFR African American 92.8 (>60); EGFR Non-African American 76.7 (>60); Potassium 3.5 mmol/L (3.5-5.0)
== END 2020-05-15 11:45 | disposition home or self-care (01) | DRG 720 ==
LOC: ED 10:53 → MED 13:57
PROVIDERS: ADMIT Internal Medicine; ATTEND Internal Medicine